=== PATIENT | female | born 1930 | race Caucasian/White ===

== ENCOUNTER 2017-04-29 18:48 | Inpatient (IN) | payer MEDICARE, MEDICAID ==
[~2017-04-29] VITALS: Ht 152.4 cm; Wt 53.6 kg
[~2017-04-29 18:48] MED LIST: ACETAMINOPHEN325 M2 PO; ACIDOPHILU1 Billion; AMIODARONE HCL200 MG PO; APIXABAN; COLACE100 M1 PO; COREG3.125 MG PO; CRANBERRY450 MG PO; DULCOLAX10 M2 RC; ELIQUIS2.5 MG PO; FLEET ENEMA 13135 ML RC; K-DUR10 MEQ PO; LIPITOR40 MG PO; MILK OF MA400 MG/5 M PO; MULTIVITAMIN1 SGL PO; NATURAL IRON65 MG PO; NORCO 325 MG-51 TAB PO; NORVASC5 MG PO; OMEPRAZOLE20 M3 PO; PROVENTIL2.5 MG/3 M INH; ROBITUSSIN/DEXT10 ML PO; ROBITUSSIN20 MG/1 ML PO; SALINE NS; SYNTHROID0.075 MG PO; TUMS500 M1 PO; VITAMIN C500 M8 PO
--- NOTE | 2017-04-29 18:48 | NUR ---
Patient BIBA ACLS, transferred to bed 7. RN and RT evaluating patient at bedside.
[2017-04-29] MEDS ORDERED: ALBUTEROL SULFATE/IPRATROPIU 3 ML SOL IH ONE ×2 (18:55→19:25)
[2017-04-29 19:02] VITALS: BP 110/52
--- NOTE | 2017-04-29 19:14 | NUR ---
86/F nitzaa from [facility] with complaints of SOB all day today. Per EMS, pt received x1 breathing treatment at facility. Pt found in bed 7 with labored breathing, RR 36, use of accessory muscles, rhonchi and crackles noted all over. Pt is awake, alert to name, lethargic, purposeful with following commands. Afebrile. Pt arrived with F/C. Pt in a gown, on metaphysician, pulse oximetry and blood pressure monitoring. Pt on 4L nasal canula, O2 sat 95%.
--- NOTE | 2017-04-29 19:14 | NUR ---
Patient being evaluated by Dr. Ascencio at bedside.
[2017-04-29] MEDS ORDERED: NACL 0.9% 1,000 ML IV ONE (19:26)
[2017-04-29] MEDS ORDERED: methylPREDNISolone SS 125 MG in WATER STERILE 2 ML IV ONE (19:30)
[2017-04-29] MEDS ORDERED: ELIQUIS2.5 MG PO (19:34)
[2017-04-29] MEDS ORDERED: ATIVAN0.5 MG PO (19:34)
[2017-04-29] MEDS ORDERED: LASIX40 MG PO (19:34)
[2017-04-29] MEDS ORDERED: SYNTHROID0.075 MG PO (19:34)
[2017-04-29] MEDS ORDERED: PROVENTIL2.5 MG/3 M INH ×2 (19:34)
[2017-04-29] MEDS ORDERED: PACERONE200 MG PO (19:34)
[2017-04-29] MEDS ORDERED: LIPITOR40 MG PO (19:34)
[2017-04-29] MEDS ORDERED: ONE DAILY COMP1 EACH PO (19:34)
[2017-04-29] MEDS ORDERED: GOOD SENSE OMEP20 MG PO (19:34)
--- NOTE | 2017-04-29 19:39 | NUR ---
RT at bedside for second breathing treatment.
--- NOTE | 2017-04-29 19:40 | NUR ---
Lab at bedside for blood draw.
[2017-04-29 20:00] VITALS: BP 102/60
--- NOTE | 2017-04-29 20:01 | NUR ---
RT at bedside apply bipap
--- NOTE | 2017-04-29 20:02 | NUR ---
X-Ray at bedside.
--- NOTE | 2017-04-29 20:20 | NUR ---
Pt arrived with a F/C [address], with 200 ml of yellow cloudy urine in bag. F/C removed. New # 16 FR Harmon catheter inserted utilizing sterile technique. Immediate return of 0 ml urine noted. Bedside drainage bag placed below level of bladder. Pt tolerated procedure well.
[2017-04-29] MEDS ORDERED: FUROSEMIDE 40 MG/4 ML VIAL IVP ONE (20:25)
[2017-04-29] MEDS ORDERED: ALBUTEROL 0.083% 2.5 MG/3 ML NEBU IH PRN (20:50)
[2017-04-29] MEDS ORDERED: ACETAMINOPHEN 325 MG TAB PO PRN (20:50)
[2017-04-29] MEDS ORDERED: MORPHINE SULFATE 2 MG/ML SYR IVP PRN (20:50)
[2017-04-29] MEDS ORDERED: ONDANSETRON 4 MG/2 ML VIAL IVP PRN (20:50)
[2017-04-29 21:00] VITALS: BP 111/67
[2017-04-29] MEDS: APIXABAN 2.5 MG TAB PO SCH (21:00)
[2017-04-29] MEDS: FUROSEMIDE 40 MG/4 ML VIAL IVP SCH (21:00)
--- NOTE | 2017-04-29 21:33 | NUR ---
Patient will be admitted to care of Dr. Parrish. Admited to TELE. Will go to room 121-B. Belongings list completed. Report to Adilene ARANDA.
--- NOTE | 2017-04-29 21:40 | NUR ---
RECEIVED REPORT FROM ALEX ARANDA IN THE ER, PT WAS TRANSFERRED TO THE UNIT VIA GURNEY. PT IS AOX1, ONLY RESPONDS TO HER NAME. ON BIPAP, AND WHEN ASSESSED, HAS CRACKLES. WITH AN IV TO THE RIGHT HAND 24 G, INTACT AND PATENT, ON SALINE LOCK. WITH A RIGHT UPPER ARM ABRASION, COVERED IN THE ER AND A LEFT FA SKIN TEAR OPEN TO AIR, HEALING WELL. NOTED WITH BRUISES ON THE RIGHT FOREARM. INITIAL ASSESSMENT COMPLETED. ASSESSMENT QUESTIONS WERE BASED OF CHART AND ER DOCUMENATION. ORIENTED PT TO THE UNIT, NEEDS REINFORCEMENT. WILL CONTINUE TO MONITOR. ALL NEEDS ATTENDED, CALL LIGHT WITHIN REACH. SAFETY CHECKS IN PLACE. Addendum: 04/30/17 at 0040 by Kiera Patel RN HAS ELY CATHETER DRAINING WITH YELLOW URINE.
--- NOTE | 2017-04-29 22:05 | NUR ---
2200 TRANSFERED PT TO THE FLOOR STILL ON BIPAP. NO INCIDENT OCCURED
[2017-04-29] MEDS: DOCUSATE SODIUM 100 MG GELCAP PO SCH (22:28)
[2017-04-29] MEDS: ATORVASTATIN 20 MG TAB PO SCH (22:29)
[2017-04-29] MEDS: LORazepam 0.5 MG TAB PO SCH (22:29)
[2017-04-29] MEDS: POTASSIUM CHLORIDE 10 MEQ TABER PO SCH (22:29)
[2017-04-29] MEDS: CARVEDILOL 3.125 MG TAB PO SCH (22:30)
--- NOTE | 2017-04-29 22:30 | NUR ---
DUE MEDS GIVEN, WELL TOLERATED BY PT. WILL CONTINUE TO MONITOR. INFORMED CHARGE NURSE AND THERMOMETER MAKER OF ELIQUIS DOSE, THERMOMETER MAKER SAID HE WILL LOOK FOR THE MEDICATION IN OTHER UNITS. DID NOT GIVE LASIX DUE TO PT RECEIVING IT IN THE ER AN HOUR PRIOR TO COMING INTO THE FLOOR.
--- NOTE | 2017-04-29 23:20 | NUR ---
CALLED SHEET METAL LAY OUT WORKER TO FOLLOW UP ON THE ELIQUIS, SAID THERE WAS NOT IN STOCK.
--- NOTE | 2017-04-29 23:50 | NUR ---
BIPAP MACHINE WAS BEEPING, CALLED RT TO ASSESS PT.
[2017-04-30] VITALS (7 sets, daily range): BP systolic 100–131; BP diastolic 60–76
[2017-04-30] MEDS: IPRATROPIUM 0.02% 0.5 MG/2.5 ML NEBU IH SCH ×4 (01:06→20:24)
[2017-04-30] MEDS: ALBUTEROL 0.083% 2.5 MG/3 ML NEBU IH SCH ×4 (01:06→20:25)
[2017-04-30] MEDS: FUROSEMIDE 40 MG/4 ML VIAL IVP SCH ×2 (04:49→20:56)
[2017-04-30] MEDS: LEVOTHYROXINE 0.075 MG TAB PO SCH (05:44)
--- NOTE | 2017-04-30 07:15 | NUR ---
RECEIVED PT STABLE ON BIPAP AT DOCUMENTED SETTINGS, HHN TX GIVEN, TOLERATED WELL, NO RESP DISTRESS NOTED AT THIS TIME, PT STATES COMFORT, PROTECTA GEL UNDER FACE MASK, ALARMS SET AND AUDIBLE, VENT PLUGGED INTO RED OUTLET, WILL CONTINUE TO MONITOR.
--- NOTE | 2017-04-30 07:29 | NUR ---
ENDORSED TO AM SHIFT NURSE FOR CONTINUITY OF CARE IN STABLE CONDITION.
--- NOTE | 2017-04-30 07:30 | NUR ---
RECEIVED REPORT FROM NUTRITION EDUCATOR NURSE. PATIENT IS SLEEPING. NO S/S OF DISTRESS NOTED. PATIENT ON BIPAP, RESPIRATIONS EVEN, UNLABORED. SKIN COLOR WITHIN NORMAL LIMITS. AROUSABLE BY VOICE. INITIAL ASSESSMENT COMPLETED, PLAN OF CARE REVIEWED. PATIENT REMAINS ON EQUAL OPPORTUNITY SPECIALIST. ELY CATHETER IN PLACE, PATENT, DRAINING CLEAR YELLOW URINE. IV SITE ON RIGHT FOREARM 24G SL INTACT, PATENT. SAFETY MEASURES IN PLACE, CALL LIGHT WITHIN REACH, BED RAILS UP X2, BED WHEELS LOCKED. WILL CONTINUE TO MONITOR.
--- NOTE | 2017-04-30 08:02 | NUR ---
CHANGED BIPAP MASK FROM MEDIUM TO SMALL SIZE
--- NOTE | 2017-04-30 08:40 | NUR ---
DR. PALM AT BEDSIDE, VERBAL ORDERS GIVEN AND READ BACK TO DR. PALM. ORDERS ENTERED. PATIENT LYING DOWN IN BED, AAOX1, BIPAP MASK REMAINS ON PATIENT, O2 SAT 99% ON BIPAP, LUNGS CTA ALL LOBES, NO S/S OF RESPIRATORY DISTRESS. REFUSES BREAKFAST, DRANK ORANGE JUICE. LEFT FOREARM HEALING SKIN TEAR, RIGHT UPPER ARM BANDAGE CDI, B/L ARM PURPLE DISCOLORATIONS. MEDICATIONS DUE GIVEN WITH APPLE SAUCE, PATIENT TOLERATED WELL. PATIENT PLACED BACK ON BIPAP. SAFETY MEASURES IN PLACE, CALL LIGHT WITHIN REACH, BED RAILS UP X 2. WILL CONTINUE TO MONITOR.
--- NOTE | 2017-04-30 08:45 | NUR ---
CONT PULSE OX PLACED AT BEDSIDE
--- NOTE | 2017-04-30 08:46 | NUR ---
PATIENT HAS BEEN SCREENED AND CATEGORIZED MODERATE NUTRITION RISK. PATIENT WILL BE SEEN WITHIN 3-5 DAYS OF ADMISSION. 05/02/17-05/04/[address] Addendum: 04/30/17 at [address] Error, Disregard
--- NOTE | 2017-04-30 08:49 | NUR ---
FNS REFERRAL RECEIVED ON 04/29/17 - 2212 FOR UNSPECIFIED REASON. REFERRAL DOES NOT MEET HIGH RISK CRITERIA PER HOSPITAL POLICY. PATIENT WILL BE SEEN AND ASSESSED ACCORDING TO THE NUTRITION CARE POLICY. PATIENT HAS BEEN SCREENED AND CATEGORIZED MODERATE NUTRITION RISK. PATIENT WILL BE SEEN WITHIN 3-5 DAYS OF ADMISSION. 05/02/17-05/04/[address]
[2017-04-30] MEDS: PANTOPRAZOLE 40 MG TABEC PO SCH (08:53)
[2017-04-30] MEDS: MULTIVITAMIN/MINERALS 1 TAB PO SCH (08:54)
[2017-04-30] MEDS: CARVEDILOL 3.125 MG TAB PO SCH ×2 (08:54→21:00)
[2017-04-30] MEDS: LORazepam 0.5 MG TAB PO SCH ×2 (08:55→20:56)
[2017-04-30] MEDS: DOCUSATE SODIUM 100 MG GELCAP PO SCH ×2 (08:59→20:56)
[2017-04-30] MEDS: POTASSIUM CHLORIDE 10 MEQ TABER PO SCH ×2 (09:00→20:56)
[2017-04-30] MEDS ORDERED: AMIODARONE 200 MG TAB PO SCH (09:00)
[2017-04-30] MEDS ORDERED: ENOXAPARIN 30 MG/0.3 ML SYR SUBQ SCH (09:00)
[2017-04-30] MEDS: APIXABAN 2.5 MG TAB PO SCH ×2 (09:02→20:59)
--- NOTE | 2017-04-30 09:25 | NUR ---
PT TAKEN OFF BIPAP, PLACED ON 4LPM NC, TOLERATING WELL, NO RESP DISTRESS OR SOB NOTED, O2 SAT 98% HR 82, NOTIFIED OLIVIA ARANDA, WILL CONTINUE TO MONITOR.
--- NOTE | 2017-04-30 10:00 | NUR ---
CRITICAL RESULT TROPONIN 0.[address] PALM VIA TELEPHONE. DR. PALM TO CONTACT MANAGER TRUCK DR. MCGHEE. NO NEW ORDERS AT THIS TIME. EKG RESULTS ALSO REPORTED.
[2017-04-30] MEDS: AZITHROMYCIN 500 MG in DEXTROSE 5% 250 ML IV SCH (10:18)
--- NOTE | 2017-04-30 11:15 | NUR ---
SPONGE BATH GIVEN BY HYPERBARIC WELDER DIVER. ZAINAB CARE PERFORMED. REDNESS NOTED ON BUTTOCK/SACRUM, PHOTO TAKEN, APPLIED HEART SHAPED FOAM DRESSING FOR PROTECTION. POSITION CHANGED. PATIENT NOW ON 4L VIA NC, SAT: 97-98%, RESPIRATIONS EVEN AND UNLABORED. NO ACUTE DISTRESS NOTED. PATIENT REMAINS ON CARDIAC MONITORING. WILL CONTINUE TO MONITOR.
--- NOTE | 2017-04-30 13:45 | NUR ---
PATIENT'S SON AT BEDSIDE. PLAN OF CARE REVIEWED. SODA AND CHOCOLATE PUDDING GIVEN TO PATIENT REQUESTED. PATIENT IS CALM, RESTING COMFORTABLY IN BED. REASSURED OF IMPROVING STATUS. NO S/S OF DISTRESS. WILL CONTINUE TO MONITOR.
--- NOTE | 2017-04-30 14:24 | NUR ---
CM NOTE INITIAL REVIEW FAXED TO [facility] / FAX# [phone], ATTN: CRISTINE #[phone]
--- NOTE | 2017-04-30 17:40 | NUR ---
RECEIVED CALL FROM LABORATORY FOR TROPONIN CRITICAL VALUE OF 0.311. DR. ARPITA KELLER.
--- NOTE | 2017-04-30 17:50 | NUR ---
DR. SULLIVAN COVERING FOR DR. PALM CALLED BACK. TROPONIN RESULT REPORTED. WILL PAGE DR. CALLE PER DR. SULLIVAN REQUESTED.
--- NOTE | 2017-04-30 17:58 | NUR ---
DR. CALLE NOTIFIED OF CRITICAL TROPONIN LEVEL 0.311. PHYSICIAN TO SEE PATIENT.
--- NOTE | 2017-04-30 18:20 | NUR ---
DR CALLE TO BEDSIDE FOR EVAL, NEW ORDERS RECIEVED, PT RESTING QUIETLY IN NAD, RESP EVEN UNLABORED ON 3L NC, ELY DRAINING WELL LIGHT YELLOW URINE, ORANGE JUICE PROVIDED REQUESTED BY PT. WILL CONTINUE TO MONITOR
--- NOTE | 2017-04-30 19:29 | NUR ---
REPORT GIVEN TO PHTHALIC ACID PURIFIER NURSE, PT IN STABLE CONDITION.
--- NOTE | 2017-04-30 19:30 | NUR ---
RECEIVED PT IN STABLE CONDITION FROM AM NURSE. AWAKE/ORIENTED X2. WITH PERIODS OF CONFUSION. ON TELE MONITOR -SR / BBB. ON BEDREST . WITH GEN WEAKNESS. HL ON THE RT FA#[phone]. CLEAR AND PATENT. ELY CATH TO GRAVITY, DRAINING CLEAR YELLOW UIRNE.
--- NOTE | 2017-04-30 19:30 | NUR ---
CONTINUATION OF ABOVE NOTES. NO BP , BLOOD DRAW ON LT ARM. SIGN PLACED . REPOSITIONED FOR COMFORT . NEED ATTENDED. PLAN OF CARE DISCUSSED AND NEED REINFORCEMENT. BED ON LOW POSITION , SIDE RAILS UP X2. CALL LIGHT LACED WITHIN EASY REACH. WILL CONTINUE TO MONITOR.
[2017-04-30] MEDS: ATORVASTATIN 20 MG TAB PO SCH (20:57)
--- NOTE | 2017-04-30 20:59 | NUR ---
NIGHT MEDS GIVEN. TOLERATED WELL WITH APPLE SAUCE. WILL CONTINUE TO MONITOR.
[2017-04-30] MEDS: NITROGLYCERIN 2% 1 GM PKT TP SCH (21:00)
--- NOTE | 2017-04-30 22:00 | NUR ---
MADE ROUNDS. ASLEEP. NO ACUTE RESPIRATORY DISTRESS NOTED. WILL CONTINUE TO MONITOR.
--- NOTE | 2017-04-30 23:00 | NUR ---
REPOSITIONED PT FOR COMFORT. NO SOB NOTED. WILL CONTINUE TO MONITOR.
[2017-05-01] MEDS: ALBUTEROL 0.083% 2.5 MG/3 ML NEBU IH SCH ×4 (00:43→19:15)
[2017-05-01] MEDS: IPRATROPIUM 0.02% 0.5 MG/2.5 ML NEBU IH SCH ×4 (00:43→19:15)
--- NOTE | 2017-05-01 00:45 | NUR ---
RT HERE. PT GETTING BREATHING TREATMENT AT THIS TIME. NO SOB NOTED.
--- NOTE | 2017-05-01 01:08 | NUR ---
FOLLOW UP REGARDING PNA VACCINE, PT SAID SHE HAD ONE 3 -4 YEARS AGO.
--- NOTE | 2017-05-01 03:00 | NUR ---
MADE ROUNDS . SLEEPING AT THIS TIME. NO SOB NOTED.
[2017-05-01 04:10] VITALS: BP 94/55
--- NOTE | 2017-05-01 06:00 | NUR ---
HAS BEEN REPOSITIONED FOR COMFORT DURING THE NIGHT.
[2017-05-01] MEDS: LEVOTHYROXINE 0.075 MG TAB PO SCH (06:47)
--- NOTE | 2017-05-01 07:10 | NUR ---
ENDORSED PT IN STABLE CONDITION TO AM NURSER.
--- NOTE | 2017-05-01 07:11 | NUR ---
RECEIVED REPORT,ASSUMED CARE. PT AWAKE, RESTING IN BED . RESPIRATION EVEN AND UNLABORED,NO SOB, NO S/S OF DISTRESS. DENIES PAIN AT THIS TIME. RT AT BEDSIDE FOR BREATHING TX. SKIN INTACT, NO PRESSURE ULCER NOTED. PER AM NURSE, PT POSSIBLE DC TODAY. DISCUSSED PLAN OF CARE, EMPHASIZED Q2H TURNING. PT VERBALIZED UNDERSTANDING. ELY CATH IN PLACE, DRAINING CLEAR YELLOW URINE OUTPUT. CALL LIGHT PLACED WITHIN EASY REACH. WILL CONTINUE TO MONITOR.
--- NOTE | 2017-05-01 07:30 | NUR ---
AWAKE AND ALERT RECEIVED ON SUPPLEMENTAL OXYGEN AT 3LPM VIA NC SATURATION 100% POST HHN THERAPY TITRATED FIO2 TO 2 LPM ADELIA/RN NOTIFIED BIPAP I ROOM AT BEDSIDE
[2017-05-01 08:00] VITALS: BP 90/57
[2017-05-01] MEDS: AMIODARONE 200 MG TAB PO SCH (09:00)
[2017-05-01] MEDS ORDERED: ECOTRIN 81 MG TABEC PO SCH (09:00)
[2017-05-01] MEDS: NITROGLYCERIN 2% 1 GM PKT TP SCH ×2 (09:00→21:00)
[2017-05-01] MEDS: CARVEDILOL 3.125 MG TAB PO SCH (09:00)
[2017-05-01] MEDS: DOCUSATE SODIUM 100 MG GELCAP PO SCH ×2 (09:00→20:41)
[2017-05-01] MEDS: LORazepam 0.5 MG TAB PO SCH ×2 (09:00→21:00)
--- NOTE | 2017-05-01 09:00 | NUR ---
HELD BP MEDS ALONG WITH ATIVAN DUE TO DECREASED BP. INTERMITTENTLY PRODUCTIVE COUGH NOTED. ENCOURAGED TO EXPECTORATE PHLEGM, PT UNABLE TO. HOB ON HIGH FOWLERS POSITION. O2 SAT 98/100% ON O2 AT 2L VIA NC. CONTINUE ON Q2H TURNING. LYING ON RIGHT SIDE FACING THE WINDOW. WILL CONTINUE TO MONITOR.
[2017-05-01] MEDS: PANTOPRAZOLE 40 MG TABEC PO SCH (09:13)
[2017-05-01] MEDS: POTASSIUM CHLORIDE 10 MEQ TABER PO SCH ×2 (09:13→20:42)
[2017-05-01] MEDS: MULTIVITAMIN/MINERALS 1 TAB PO SCH (09:13)
[2017-05-01] MEDS: methylPREDNISolone SS 40 MG/ML VIAL IVP SCH (09:23)
[2017-05-01] MEDS: FUROSEMIDE 40 MG/4 ML VIAL IVP SCH ×2 (09:23→21:00)
[2017-05-01] MEDS: AZITHROMYCIN 500 MG in DEXTROSE 5% 250 ML IV SCH (09:29)
[2017-05-01] MEDS: APIXABAN 2.5 MG TAB PO SCH ×2 (09:44→20:43)
--- NOTE | 2017-05-01 10:30 | NUR ---
PT TURNED TO THE LEFT FACING THE DOOR. REDNESS TO COCCYX AREA, Z GUARD APPLIED FOR PREVENTION OF ULCER. KEPT CLEAN AND DRY. WILL CONTINUE TO MONITOR
--- NOTE | 2017-05-01 10:44 | NUR ---
SPOKE WITH DR. CALLE MADE AWARE OF DC PLANNING ORDERED BY DR. PALM. PT NOT CLEARED FOR DISCHARGE YET, STATES "MAYBE TOMORROW" AND ORDERED TO DC ASA. NOTED AND CARRIED OUT.
--- NOTE | 2017-05-01 11:00 | NUR ---
PT C/O SOB AT THIS TIME, O2 SAT SHOWS 98-100%. ON O2 AT 2L VIA NC. STEPHEN RT AWARE, PT WAS PUT ON BIPAP TO MASK. INTERMITTENT PRODUCTIVE COUGH WITH CONGESTION. BREATH SOUNDS RONCHI BILATERAL. HOB MAINTAINED TO SEMIFOWLER'S POSITION. WILL CONTINUE TO MONITOR.
--- NOTE | 2017-05-01 11:10 | NUR ---
AWAKE AND ALERT RESPONSIVE SATURATION 99% ON SUPPLEMENTAL OXYGEN AT 2 LPM VIA NC HR 89 RR 32 BREATH SOUNDS DIFFUSED RHONCHI BILATERAL PATIENT REMAINS SOB AT THIS TIME PLACED ON BIPAP TO MASK WITH PROTECTA-GEL TO DECREASE WORK OF BREATHING ADELIA/RN NOTIFIED
[2017-05-01 12:00] VITALS: BP 94/55
--- NOTE | 2017-05-01 12:30 | NUR ---
PT REQUESTS TO BE REMOVED ON BIPAP LUNCH TRAY HAS BEEN SERVED. HOOKED PT ON O2 AT 2L VIA NC. NO S/S OF RESPIRATORY DISTRESS, NO C/O SOB AT THIS TIME. WILL CONTINUE TO MONITOR.
--- NOTE | 2017-05-01 12:34 | NUR ---
PT TURNED TO THE RIGHT FACING THE WINDOW. PT ARGUMENTATIVE AND REFUSES TO BE TURNED Q2H. CONTINUE TO EDUCATE PT REGARDING IMPORTANCE OF COMPLIANCE WITH TURNING TO PREVENT PRESSURE ULCER. PT IRRITABLE AND REFUSES TO VERBALIZE UNDERSTANDING. WILL CONTINUE TO MONITOR.
--- NOTE | 2017-05-01 13:26 | NUR ---
PAGED DR. PALM RE: URINE CULTURE RESULT E COLI ESBL MDRO. MESSAGE LEFT TO SALVADOR. AWAITING FOR CALL BACK.
--- NOTE | 2017-05-01 14:00 | NUR ---
DR. PALM CALLED BACK AND DISCUSSED URINE CX RESULT WITH NEW ORDER TO DC ZITHROMAX AND START PT ON ZOSYN 3.375GM IVPB Q6H. NOTED AND CARRIED OUT.
--- NOTE | 2017-05-01 14:05 | NUR ---
PT ALLERGIC TO PCN, CAN'T HAVE ZOSYN. SPOKE WITH LEIA(PHARMACIST), RECOMMENDED TO EITHER TOBRAMYCIN OR GENTAMICIN. WILL DISCUSS WITH DR. PALM.
--- NOTE | 2017-05-01 14:12 | NUR ---
PATIENT REMOVED FROM BIPAP TO MASK AT 1230 BY ADELIA/RN FOR LUNCH TRAY LOC ASLEEP AT THIS TIME EASILY AWAKEN NO EVIDENCE SOB NOTED ASSESSMENT DONE HHN THERAPY GIVEN ORDERED BIPAP AT BEDSIDE
--- NOTE | 2017-05-01 14:16 | NUR ---
SPOKE WITH DR. PALM DISCUSSED ABOUT PATIENT'S ALLERGY AND PHARMACIST'S RECOMMENDATION. ORDERED TO CONTACT INFECTIOUS DISEASE DOCTOR. WILL NOTIFY DR. CHANG.
--- NOTE | 2017-05-01 14:18 | NUR ---
PAGED DR. CHANG, MESSAGE LEFT TO TRACEY. AWAITING FOR CALL BACK.
--- NOTE | 2017-05-01 14:24 | NUR ---
DR. CHANG CALLED BACK MADE AWARE OF THE CONSULT. HE STATES HE'LL LOOK INTO IT AND WILL PUT THE ORDER IN THE COMPUTER.
--- NOTE | 2017-05-01 14:26 | NUR ---
PT TURNED TO THE LEFT FACING THE DOOR. PT CONTINUE ON O2 AT 2L VIA NC . NO S/S OF RESPIRATORY DISTRESS AT THIS TIME. WILL CONTINUE TO MONITOR.
[2017-05-01] MEDS ORDERED: Z-GUARD PASTE TP PRN (15:10)
--- NOTE | 2017-05-01 15:35 | NUR ---
CM NOTE CONCURRENT REVIEW FAXED TO [facility] / FAX# [phone], ATTN: CRISTINE #[phone]
[2017-05-01 16:00] VITALS: BP 94/56
--- NOTE | 2017-05-01 18:45 | NUR ---
DR. CALLE CAME AND SEEN THE PT WITH NEW ORDER NITROBID. WILL CARRY OUT ORDER.
--- NOTE | 2017-05-01 18:50 | NUR ---
DR. PALM CAME WITH NO NEW ORDER AT THIS TIME.
--- NOTE | 2017-05-01 19:15 | NUR ---
PT AWAKE, RESTING COMFORTABLY IN BED. RESPIRATION EVEN AND UNLABORED, NO SOB, NO S/S OF RESPIRATORY DISTRESS. DENIES PAIN AT THIS TIME. CONTINUE ON O2 AT 2L VIA NC. PT HAS POOR APPETITE, CONSUMED 30% ALL MEALS SERVED. TURNED PT Q2H. ENDORSED TO NEXT SHIFT FOR CONTINUITY OF CARE. PT IN STABLE CONDITION.
--- NOTE | 2017-05-01 19:25 | NUR ---
RECEIVED PT IN STABLE CONDITION FROM AM NURSE. AWAKE,ALERT AND ORIENTED X2. WITH PERIODS OF CONFUSION. ON TELE MONITOR. NO ACUTE DISTRESS NOTED. O2 2L/NC. O2 SAT 100%. GETTING BREATHING TREATMENTS Q6HRS AND PRN FOR SOB. BEDREST. WITH HL ON THE RT HAND #24. CLEAR AND PATENT. ELY CATH TO GRAVITY WITH CLEAR YELLOW URINE OUTPUT. WITH ABRASION ON RT UPPER ARM, DRESSING IN PLACED. REDNESS ON THE SACRUM. NEED TO BE TURN Q2HRS. BED ON LOW POSITION. FREQUENT ROUNDS NEEDED. , ON CONTACT ISOLATION FOR ESBL/MDRO URINE. CALL LIGHT PLACED WITHIN EASY REACH. WILL CONTINUE TO MONITOR.
[2017-05-01 19:54] VITALS: BP 92/52
[2017-05-01] MEDS: ATORVASTATIN 20 MG TAB PO SCH (20:42)
[2017-05-01] MEDS: CARVEDILOL 6.25 MG TAB PO SCH (21:00)
--- NOTE | 2017-05-01 21:00 | NUR ---
BLOOD PRESSURE HAS BEEN ON LOW 92/52 . SOME MEDS NOT GIVEN . WILL CONTINUE TO MONITOR.
--- NOTE | 2017-05-01 21:52 | NUR ---
DR. CHANG HERE AND SEEN PT . WITH NEW ORDERS.
--- NOTE | 2017-05-01 22:30 | NUR ---
ELY CATH DISCONTINUED PER MD ORDER. INSERTED A NEW ELY CATH #16. . PT TOLERATED PROCEDURE WELL.
[2017-05-01] MEDS ORDERED: MEROPENEM 500 MG VIAL IV ONE (22:33)
[2017-05-01] MEDS: MEROPENEM 500 MG in NACL 0.9% 50 ML IV SCH (22:41)
--- NOTE | 2017-05-01 22:41 | NUR ---
MERREM 500MG IVPB FIRST DOSE STARTED . WILL MONITOR FOR ANY REACTION.
[2017-05-02] VITALS: BP 93/61
--- NOTE | 2017-05-02 | NUR ---
REPOSITIONED FOR COMFORT. NO SOB NOTED. O2 SAT 99%-100% ON O22L/NC.
[2017-05-02] MEDS: IPRATROPIUM 0.02% 0.5 MG/2.5 ML NEBU IH SCH ×3 (01:07→13:26)
[2017-05-02] MEDS: ALBUTEROL 0.083% 2.5 MG/3 ML NEBU IH SCH ×3 (01:08→13:26)
--- NOTE | 2017-05-02 02:45 | NUR ---
ELY CATH STILL IN PLACED. DRAINING CLEAR YELLOW URINE.
[2017-05-02 04:00] VITALS: BP 97/61
--- NOTE | 2017-05-02 04:45 | NUR ---
MADE RONDS. SLEEPING AT THIS TIME. NO S/S OF ANY DISTRESS NOTED.
[2017-05-02] MEDS: LEVOTHYROXINE 0.075 MG TAB PO SCH (05:48)
--- NOTE | 2017-05-02 06:20 | NUR ---
PT NOT ON ANY RESPIRATORY DISTRESS DURING THE NIGHT. HAS BEEN TURNED TO SIDES Q2HR.
--- NOTE | 2017-05-02 07:10 | NUR ---
ENDORSED PT IN STABLE CONDITION TO AM NURSE FOR CONTINUITY OF CARE.
--- NOTE | 2017-05-02 07:11 | NUR ---
RECEIVED PT FROM JUNAID RN AT BEDSIDE. PT IS A&OX2. PT HAS IV ON R ARM 24 G SL SITE INTACT. PT HAS DSG ON RUE FOR ABRASION. NO DISTRESS NOTED. PT IS RECEIVING BREATHING TX AT THIS TIME. CALL LIGHT WITHIN REACH. WILL CONTINUE TO MONITOR.
--- NOTE | 2017-05-02 07:29 | NUR ---
Weaned to room air.
[2017-05-02] MEDS ORDERED: MEROPENEM500 MG IV (07:58)
[2017-05-02 08:00] VITALS: BP 101/59
[2017-05-02] MEDS: PANTOPRAZOLE 40 MG TABEC PO SCH (08:35)
[2017-05-02] MEDS: methylPREDNISolone SS 40 MG/ML VIAL IVP SCH (08:35)
[2017-05-02] MEDS: MULTIVITAMIN/MINERALS 1 TAB PO SCH (08:36)
[2017-05-02] MEDS: POTASSIUM CHLORIDE 10 MEQ TABER PO SCH (08:36)
[2017-05-02] MEDS: LORazepam 0.5 MG TAB PO SCH (08:36)
[2017-05-02] MEDS: DOCUSATE SODIUM 100 MG GELCAP PO SCH (08:36)
[2017-05-02] MEDS: AMIODARONE 200 MG TAB PO SCH (08:49)
[2017-05-02] MEDS: CARVEDILOL 6.25 MG TAB PO SCH (08:49)
[2017-05-02] MEDS: FUROSEMIDE 40 MG/4 ML VIAL IVP SCH (08:49)
[2017-05-02] MEDS: NITROGLYCERIN 2% 1 GM PKT TP SCH (08:50)
[2017-05-02] MEDS: APIXABAN 2.5 MG TAB PO SCH (08:55)
[2017-05-02] MEDS: MEROPENEM 500 MG in NACL 0.9% 50 ML IV SCH (08:56)
--- NOTE | 2017-05-02 09:30 | NUR ---
CLEANED AND CHANGED DSG ON PT'S RUE. TOOK A PICTURE. PT TOLERATED WELL. CALL LIGHT WITHIN REACH. WILL CONTINUE TO MONITOR.
[2017-05-02 10:11] VITALS: BP 101/59
--- NOTE | 2017-05-02 10:51 | NUR ---
CM NOTE FAXED CONCURRENT REVIEW TO [facility] [phone], CRISTINE [phone], TONI [phone]. SPOKE WITH MATEO MUÑOZ OF [facility] [phone], SNF AUTH # AND MED [facility]SP[facility] FOR [facility] [phone], AUTH # [id number]. PER MATEO MUÑOZ IT'S A NON EMERGENT TRANSPORT THAT'S WHY IT'S THE SAME AUTH#.
[2017-05-02 11:43] VITALS: BP 94/56
--- NOTE | 2017-05-02 11:50 | NUR ---
HELPED PT EAT LUNCH. PT TOLERATED WELL. CALL LIGHT WITHIN REACH. WILL CONTINUE TO MONITOR.
--- NOTE | 2017-05-02 12:19 | NUR ---
CM NOTE SPOKE TO [facility] [phone] TO SET UP TRANSPORT GOING TO [facility] RM 34 A, JACK PRIZER TIME 1700, ACCEPTING DR. JAG MANCILLA, NUMBER TO CALL FOR REPORT PH [phone]. CHARGE NURSE EARL AND NURSE SRIDEVI AWARE.
--- NOTE | 2017-05-02 13:20 | NUR ---
CALLED PT'S SON JUDI ESTRADA AND MADE AWARE THAT PT IS TRANSFERRING TO [facility] TODAY AT 1700.
--- NOTE | 2017-05-02 13:40 | NUR ---
GAVE REPORT TO ORI ARANDA AT [facility] [place].
--- NOTE | 2017-05-02 15:40 | NUR ---
WENT OVER DC PAPERWORK WITH PT AT BEDSIDE. PT VERBALIZED UNDERSTANDING AND SIGNED ALL PAPERWORK. PT IN STABLE CONDITION. CALL LIGHT WITHIN REACH. WILL CONTINUE TO MONITOR.
[2017-05-02 16:00] VITALS: BP 90/54
--- NOTE | 2017-05-02 17:25 | NUR ---
GAVE REPORT TO YASMEEN GODOY. PT IN STABLE CONDITION. REMOVED ALL ID BANDS. PT IS GOING TO [facility] WITH ELY AND IV ON R F/A 24 G SALINE-LOCKED ORDERED FOR IV ANTIBIOTICS. O2 2L NC.
[2017-05-13] MEDS ORDERED: VITAMIN C500 M8 PO (06:20)
[2017-05-13] MEDS ORDERED: ACIDOPHILUS1 EAC1 PO (06:20)
[2017-05-13] MEDS ORDERED: CRANBERRY450 MG PO (06:20)
== END 2017-05-02 17:25 | disposition home or self-care (01) | DRG 291 ==
LOC: MED 18:48 → MTU 20:48
PROVIDERS: ADMIT Hospitalist; ATTEND Hospitalist
PROC: 5A09357 Assistance with Respiratory Ventilation, Less than 24 Consecutive Hours, Continuous Positive Airway Pressure (ICD-10-PCS; principal; 2017-04-29)
DX: I50.33 Acute on chronic diastolic (congestive) heart failure (principal); J96.00 Acute respiratory failure, unspecified whether with hypoxia or hypercapnia; J18.9 Pneumonia, unspecified organism; I69.354 Hemiplegia and hemiparesis following cerebral infarction affecting left non-dominant side; J44.0 Chronic obstructive pulmonary disease with (acute) lower respiratory infection; J44.1 Chronic obstructive pulmonary disease with (acute) exacerbation; N39.0 Urinary tract infection, site not specified; F03.90 Unspecified dementia, unspecified severity, without behavioral disturbance, psychotic disturbance, mood disturbance, and anxiety; F41.9 Anxiety disorder, unspecified; B96.20 Unspecified Escherichia coli [E. coli] as the cause of diseases classified elsewhere; E03.9 Hypothyroidism, unspecified; E78.5 Hyperlipidemia, unspecified; Z85.3 Personal history of malignant neoplasm of breast; Z88.0 Allergy status to penicillin; Z88.7 Allergy status to serum and vaccine; Z99.81 Dependence on supplemental oxygen; Z79.01 Long term (current) use of anticoagulants; Z90.12 Acquired absence of left breast and nipple

== ENCOUNTER 2017-05-04 15:03 | Inpatient (IN) | payer MEDICARE, MEDICAID ==
[~2017-05-04] VITALS: Ht 162.6 cm; Wt 54.0 kg
[~2017-05-04 15:03] MED LIST changes: +ATIVAN0.5 MG PO; +GOOD SENSE OMEP20 MG PO; +LASIX40 MG PO; +MEROPENEM500 MG IV; +ONE DAILY COMP1 EACH PO; +PACERONE200 MG PO
--- NOTE | 2017-05-04 15:03 | NUR ---
Patient was BIBA and taken to bed 04 via guramy per EMS. Addendum: 05/04/17 at 1621 by [email or web address] [place] MANOJ SERRANO [place] [facility] [facility] 2 DAYS AGO DX UTI & RETAINED ELY'S CATH FROM HOSPITAL. PT HAS SOB & COUGH X 2 DAYS; ON O2 CN 4 L/M. PT CAN'T EAT ANYTHING TODAYS ONLY DRANK WATER 250 CC. URINE FROM ELY CATH A LITTLE PER MANOJ SERRANO. SKIN COCCYX REDNESS.
--- NOTE | 2017-05-04 15:04 | NUR ---
86 YO FEMALE BIB EMS FROM [facility] FOR SUDDEN ONSET OF COUGH & SOB X 2 DAYS. DENIES N/V/D; SKIN IS OPEN & RED TO HANS. AAOX4 ; LUNGS CRACKLE BL; HR EVEN AND REGULAR; PT DENIES ANY FEVER, CP AT THIS TIME; PATIENT STATES PAIN OF 0/10 AT THIS TIME; VSS; PATIENT POSITIONED FOR COMFORT; HOB ELEVATED; BEDRAILS UP X2; BED DOWN. ER MD MADE AWARE OF PT STATUS.
[2017-05-04 15:10] VITALS: BP 126/70
--- NOTE | 2017-05-04 15:25 | NUR ---
Patient being evaluated by DR BYRNES at bedside.
[2017-05-04] MEDS ORDERED: NACL 0.9% 1,000 ML IV ONE (15:30)
--- NOTE | 2017-05-04 16:13 | NUR ---
X RAY AT BEDSIDE.
--- NOTE | 2017-05-04 16:36 | NUR ---
Patient appears to be resting comfortably in bed. BP 107/72, P 81/MIN, R 28/MIN.WILL CONTINUE TO MONITOR.
--- NOTE | 2017-05-04 16:58 | NUR ---
LAB AT BEDSIDE
[2017-05-04] MEDS ORDERED: FUROSEMIDE 40 MG/4 ML VIAL IVP ONE (17:15)
--- NOTE | 2017-05-04 17:48 | NUR ---
CALLED RT FOR O2 FACE MASK.
--- NOTE | 2017-05-04 18:03 | NUR ---
PLACED PT 35% VMASK, O2 SAT 97%, BIPAP ON STANDBY Addendum: 05/04/17 at 1808 by KHADAR PT STATUS ENDORSED TO NOC SHIFT
[2017-05-04] MEDS ORDERED: LEVOFLOXACIN 750 MG/D5W PREMIX 150 ML IV ONE (18:20)
[2017-05-04] MEDS ORDERED: ALBUTEROL 0.083% 2.5 MG/3 ML NEBU INH PRN (18:20)
[2017-05-04] MEDS ORDERED: ONDANSETRON 4 MG/2 ML VIAL IVP PRN (18:25)
[2017-05-04] MEDS ORDERED: MORPHINE SULFATE 2 MG/ML SYR IVP PRN (18:25)
[2017-05-04] MEDS ORDERED: MORPHINE SULFATE 4 MG/ML SYR IVP PRN (18:25)
--- NOTE | 2017-05-04 19:04 | NUR ---
GAVE REPORT TO MANOJ WILLS
--- NOTE | 2017-05-04 19:05 | NUR ---
Patient will be admitted to [facility] . Admited to TELE. Will go to room 114. Belongings list completed. Report to MANOJ WILLS.
--- NOTE | 2017-05-04 19:05 | NUR ---
PATIENT TRANSFERRED TO [facility] RM 114 ON SUPPLEMENTAL OXYGEN VIA VENTI-MASK AT 35%/9 LPM SATURATION 98% HR 88 RR 24 TOLERATED TRANSFER WELL WITHOUT INCIDENT DENY V60 BIPAP IN ROOM AT BEDSIDE FOR PRN USE
--- NOTE | 2017-05-04 19:10 | NUR ---
RECEIVED PATIENT FROM ER, RECEIVED REPORT FROM MANOJ GUILLORY. PT AWAKE AND ALERT, NO SIGNS OF ACUTE DISTRESS. BOWEL SOUNDS ACTIVE IN ALL 4 QUADRANTS. ON VENTURI MASK AT 35%, O2 SATURATION 96%. OPEN WOUND ON UPPER RIGHT ARM. PT DENIES PAIN AT THIS TIME. IV PATENT AND ASYMPTOMATIC. BEDBOUND. ELY CATHETER IN PLACE. ORIENTED TO HOSPITAL AND TO UNIT, PT VERBALIZES UNDERSTANDING. BED IN LOW POSITION WITH BILATERAL HALF SIDE RAILS UP, BED ALARM ON, CALL LIGHT WITHIN REACH. WILL CONTINUE TO MONITOR.
--- NOTE | 2017-05-04 19:20 | NUR ---
PT AWAKE AND ALERT, NO SIGNS OF ACUTE DISTRESS. ENDORSED TO MEDICAL DERMATOLOGIST NURSE FOR CONTINUITY OF CARE.
--- NOTE | 2017-05-04 19:21 | NUR ---
RECEIVED REPORT FROM AM SHIFT NURSE. PT IS AWAKE AND ALERT, NO S/S OF DISTRESS. NO COMPLAINTS OF PAIN. ON VENTURI MASK, WELL TOLERATED BY PT. WITH AN OPEN WOUND TO THE RIGHT UPPER ARM. IV TO THE RIGHT AC 24 G, SALINE LOCK, INTACT AND PATENT. WITH A ELY, DRAINING TO YELLOW URINE. BEDBOUND. ON TELE MONITORING. ORIENTED PT TO THE UNIT, VERBALIZED UNDERSTANDING. INITIAL ASSESSMENT DONE. WILL CONTINUE TO MONITOR. ALL NEEDS ATTENDED. CALL LIGHT WITHIN REACH. SAFETY CHECKS IN PLACE.
[2017-05-04] MEDS: ALBUTEROL 0.083% 2.5 MG/3 ML NEBU INH SCH (19:29)
--- NOTE | 2017-05-04 19:29 | NUR ---
SATURATION 98% ON SUPPLEMENTAL OXYGEN AT 35%/9 LPM POST HHN THERAPY PLACED ON A OXYMIZER AT 3 LPM WITH HUMIDIFIER DENI/RN AT BEDSIDE AWARE
[2017-05-04 20:00] VITALS: BP 113/68
[2017-05-04] MEDS ORDERED: CARVEDILOL 3.125 MG TAB PO SCH (21:00)
[2017-05-04] MEDS: APIXABAN 2.5 MG TAB PO SCH (21:00)
[2017-05-04] MEDS: ATORVASTATIN 20 MG TAB PO SCH (21:03)
[2017-05-04] MEDS: DOCUSATE SODIUM 100 MG GELCAP PO SCH (21:03)
[2017-05-04] MEDS: LORazepam 0.5 MG TAB PO SCH (21:04)
--- NOTE | 2017-05-04 21:04 | NUR ---
DUE MEDS GIVEN, WELL TOLERATED BY PATIENT. ASKED CLINICAL INFORMATICIST FOR MEDICATION OF ELIQUIS, SAID THERE WAS NONE IN STOCK. WILL CONTINUE TO MONITOR FOR ANY CHANGES.
[2017-05-05] VITALS: BP 93/61
--- NOTE | 2017-05-05 | NUR ---
VITAL SIGNS STABLE. NO S/S OF DISTRESS. NO COMPLAINTS OF PAIN. WILL CONTINUE TO MONITOR FOR ANY CHANGES.
--- NOTE | 2017-05-05 01:07 | NUR ---
PAGED DR. FOFANA IN REGARDS TO CRITICAL VALUE. AWAITING CALL BACK.
--- NOTE | 2017-05-05 01:12 | NUR ---
DR. FOFANA PAGED BACK, TOLD HIM THE TROPONIN LEVEL. NO NEW ORDERS AT THIS TIME.
--- NOTE | 2017-05-05 02:10 | NUR ---
MADE ROUNDS. PT ASLEEP. NO S/S OF DISTRESS. NO COMPLAINTS OF PAIN. WILL CONTINUE TO MONITOR FOR CHANGES.
[2017-05-05 04:00] VITALS: BP 114/68
--- NOTE | 2017-05-05 04:55 | NUR ---
PAGED DR. FOFANA FOR CRITICAL VALUE RESULT, AWAITING CALL BACK
--- NOTE | 2017-05-05 05:17 | NUR ---
PAGED DR FOFANA AGAIN FOR CRITICAL. AWAITING CALL BACK
--- NOTE | 2017-05-05 05:22 | NUR ---
REPORTED TO DR. FOFANA OF TROPONIN OF [phone]. SAID NO NEW ORDERS.
[2017-05-05] MEDS: ALBUTEROL 0.083% 2.5 MG/3 ML NEBU INH SCH ×3 (07:03→19:36)
--- NOTE | 2017-05-05 07:20 | NUR ---
ENDORSED TO AM SHIFT NURSE FOR CONTINUITY OF CARE IN STABLE CONDITION.
--- NOTE | 2017-05-05 07:20 | NUR ---
RECEIVED PATIENT REPORT AT BEDSIDE. PATIENT AWAKE AND ALERT. PATIENT RECEIVING 3L O2 VIA OXIMIZER. NO S/S OF DISTRESS NOTED. NO SOB. PATIENT DENIES PAIN. IV LINE NOTED TO THE RIGHT FOREARM SALINE LOCKED. WOUND DRESSING NOTED TO THE RIGHT UPPER ARM. DRESSING CLEAN DRY AND INTACT. ELY CATHETER IN PLACE. PATIENT ON TELE MONITORING. BED LOWERED WITH CALL LIGHT WITHIN REACH. WILL CONTINUE TO MONITOR
[2017-05-05 08:00] VITALS: BP 101/60
[2017-05-05] MEDS: CARVEDILOL 6.25 MG TAB PO SCH ×2 (08:00→17:33)
[2017-05-05] MEDS: LEVOTHYROXINE 0.075 MG TAB PO SCH (08:27)
[2017-05-05] MEDS: AMIODARONE 200 MG TAB PO SCH (08:28)
[2017-05-05] MEDS: PANTOPRAZOLE 40 MG TABEC PO SCH (08:29)
[2017-05-05] MEDS: MULTIVITAMIN/MINERALS 1 TAB PO SCH (08:30)
[2017-05-05] MEDS: FUROSEMIDE 40 MG/4 ML VIAL IVP SCH ×2 (08:32→13:59)
[2017-05-05] MEDS: APIXABAN 2.5 MG TAB PO SCH ×2 (08:39→20:25)
[2017-05-05] MEDS: LORazepam 0.5 MG TAB PO SCH ×2 (09:00→20:38)
[2017-05-05] MEDS: DOCUSATE SODIUM 100 MG GELCAP PO SCH ×2 (09:00→20:25)
--- NOTE | 2017-05-05 11:06 | NUR ---
PATIENT HAS BEEN SCREENED AND CATEGORIZED MODERATE NUTRITION RISK. PATIENT WILL BE SEEN WITHIN 3-5 DAYS OF ADMISSION. 05/07/17 - 05/09/[address]
--- NOTE | 2017-05-05 11:46 | NUR ---
PATIENT SEEN BY PHYSICAL THERAPIST
[2017-05-05 12:00] VITALS: BP 102/57
--- NOTE | 2017-05-05 13:30 | NUR ---
PATIENT WATCHING TELEVISION. NO S/S OF DISTRESS NOTED. PATIENT'S SON PRESENT IN THE ROOM
--- NOTE | 2017-05-05 14:29 | NUR ---
1415 SPOKE WITH MIRIAM FROM [facility] AND PT IS ONE OF THEIR GROUP HOME RESIDENTS AND IS ELIGIBLE FOR RETURN. PT'S SON JUDI MAKES PTS DECISIONS.
--- NOTE | 2017-05-05 15:04 | NUR ---
PT TAKEN OFF OF OXYMIZER AND PLACED ON 3L NC. PT IS NOT SOB AND NOT IN RESPIRATORY DISTRESS AT THIS TIME. WILL CONTINUE TO MONITOR.
--- NOTE | 2017-05-05 15:06 | NUR ---
CM NOTE INITIAL REVIEW FAXED TO [facility] / FAX# [phone], ATTN: CRISTINE #[phone]
--- NOTE | 2017-05-05 15:45 | NUR ---
PATIENT IN BED WATCHING TELEVISION. NO S/S OF DISTRESS NOTED
[2017-05-05 16:00] VITALS: BP 107/52
--- NOTE | 2017-05-05 19:31 | NUR ---
PATIENT REPORT GIVEN AT BEDSIDE. PATIENT ENDORSED IN STABLE CONDITION
[2017-05-05 19:45] VITALS: BP 93/42
--- NOTE | 2017-05-05 19:45 | NUR ---
RECEIVED PT IN STABLE CONDITION FROM AM NURSE. AWAKE,ALERT AND ORIENTED X2. WITH HX: DEMENTIA. ON TELE MONITOR. ON O23L/N WITH HUMIDIFIER. NO ACUTE DISTRESS NOTED. BEDREST. ELY CATH TO GRAVITY. PLAN OF CARE DISCUSSED . NEED REINFORCEMENT. BED ON LOW POSITION. FREQUENT ROUNDS NEEDED. CALL LIGHT PLACED WITHIN EASY REACH. WILL CONTINUE TO MONITOR.
[2017-05-05] MEDS: ATORVASTATIN 20 MG TAB PO SCH (20:25)
--- NOTE | 2017-05-05 20:30 | NUR ---
PT HAD 1/2 SANDWICH , APPLE SAUCE AND JUICE. TOLERATED WELL.
--- NOTE | 2017-05-05 21:00 | NUR ---
PT WITH BLANCHABLE REDNESS ON SACRO COCCYGEAL AREA. TURN PT Q2HRS. PT AWARE OF THE NEED TO REPOSITION.
--- NOTE | 2017-05-05 22:00 | NUR ---
REPOSITIONED FOR COMFORT. NO SOB NOTED. WILL CONTINUE TO MONITOR.
[2017-05-06] VITALS: BP 91/49
--- NOTE | 2017-05-06 02:00 | NUR ---
REPOSITIONED FOR COMFORT. NO SOB NOTED. BUT WITH OCCASIONAL NON -PRODUCTIVE COUGH. O23L/NC STILL ON.
--- NOTE | 2017-05-06 04:00 | NUR ---
REPOSITIONED FOR COMFORT. NO SOB NOTED. WITH CONTINUOS O2 3L/NC.
[2017-05-06 04:05] VITALS: BP 100/57
[2017-05-06] MEDS ORDERED: HYDRAGUARD CREAM TP PRN (05:35)
[2017-05-06] MEDS ORDERED: MILD SOAP AND WATER TP PRN (05:35)
--- NOTE | 2017-05-06 06:00 | NUR ---
ASLEEP. NO S/S OF ANY DISCOMFORT NOTED. WILL CONTINUE TO MONITOR.
[2017-05-06] MEDS: LEVOTHYROXINE 0.075 MG TAB PO SCH (06:37)
[2017-05-06] MEDS: ALBUTEROL 0.083% 2.5 MG/3 ML NEBU INH SCH ×2 (07:16→19:18)
--- NOTE | 2017-05-06 07:20 | NUR ---
PT IN STABLE CONDITION . WILL ENDORSE PT TO AM NURSE FOR CONTINUITY OF CARE.
--- NOTE | 2017-05-06 07:21 | NUR ---
RECEIVED REPORT FROM SALES ENABLEMENT ANALYST NURSE AT BEDSIDE FOR CONTINUITY OF CARE. PT IS AWAKE AND ORIENTED. INTRODUCED SELF AND UPDATED BOARD. WILL CONTINUE WITH PLAN OF CARE AND MONITOR PT.
--- NOTE | 2017-05-06 07:22 | NUR ---
DECREASED PT DIO2 TO 28% 2 L NC . SPO2 STILL 99%. WILL CONTINUE TO MONITOR. Addendum: 05/06/17 at 0724 by Rebel Montana RT FIO2
[2017-05-06 08:00] VITALS: BP 103/63
[2017-05-06] MEDS: CARVEDILOL 6.25 MG TAB PO SCH ×2 (08:00→17:00)
--- NOTE | 2017-05-06 08:28 | NUR ---
ADMINISTERED SCHEDULED MEDS. PT'S BP WAS 103/63. NON-ADMIN BP MEDS (SEE EMAR). PT REFUSED COLACE AND ATIVAN. STATED SHE WAS ALREADY PASSING GAS AND DID NOT WANT TO TAKE ATIVAN. PT HAS NO COMPLAINTS AT THIS TIME WILL CONTINUE TO MONITOR.
[2017-05-06] MEDS: APIXABAN 2.5 MG TAB PO SCH ×2 (09:00→21:57)
[2017-05-06] MEDS: AMIODARONE 200 MG TAB PO SCH (09:00)
[2017-05-06] MEDS: DOCUSATE SODIUM 100 MG GELCAP PO SCH ×2 (09:00→21:00)
[2017-05-06] MEDS ORDERED: LEVOFLOXACIN 750 MG/D5W PREMIX 150 ML IV SCH (09:00)
[2017-05-06] MEDS: LORazepam 0.5 MG TAB PO SCH ×2 (09:00→21:00)
[2017-05-06] MEDS: FUROSEMIDE 40 MG/4 ML VIAL IVP SCH ×2 (09:38→13:00)
[2017-05-06] MEDS: PANTOPRAZOLE 40 MG TABEC PO SCH (09:41)
[2017-05-06] MEDS: MULTIVITAMIN/MINERALS 1 TAB PO SCH (09:41)
[2017-05-06] MEDS ORDERED: POTASSIUM CHLORIDE 10 MEQ TABER PO SCH (11:00)
[2017-05-06 12:00] VITALS: BP 97/61
[2017-05-06] MEDS: MILD SOAP AND WATER TP SCH (12:23)
[2017-05-06] MEDS: HYDRAGUARD CREAM TP SCH (12:23)
--- NOTE | 2017-05-06 12:42 | NUR ---
[place] [facility] [phone] PHONE CRISTINE [phone]
--- NOTE | 2017-05-06 13:00 | NUR ---
CHECKED ON PT IN ROOM. APPLIED HYDRAGUARD TO SACRALCOCCYX AREA. PT TOLERATED WELL. HELD LASIX PER PT'S BP WAS 92/50. REPOSITIONED PT IN BED AND TURNED TO LEFT SIDE. PT HAS NO COMPLAINTS AT THIS TIME WILL CONTINUE TO MONITOR.
[2017-05-06 16:00] VITALS: BP 92/50
--- NOTE | 2017-05-06 19:25 | NUR ---
ENDORSED PT TO TELECOMMUNICATIONS REPAIRER NURSE AT BEDSIDE FOR CONTINUITY OF CARE. PT IS IN STABLE CONDITION.
--- NOTE | 2017-05-06 19:35 | NUR ---
RECEIVED PT IN STABLE CONDITION FROM AM NURSE. BEDREST. AWAKE, ALERT AND ORIENTED X3-4. WITH HX DEMENTIA. ON TELE MONITOR . NO RESPIRATORY DISTRESS NOTED ON O22L/NC. BOTH LUNGS CLEAR AND AUSCULTATION . HAS HL ON THE RT FA#[id number]. CLEAR AND PATENT. WITH RT UPPER ARM DRESSING,CLEAN AND DRY. HAS REDNESS ON SACRAL AREA. REPOSITIONED FOR COMFORT . PLAN OF CARE DISCUSSED AND VERBALIZED UNDERSTANDING. BED ON LOW POSITION. ON CONTACT ISOLATION FOR HX: MDRO URINE. FREQUENT ROUNDS NEEDED. CALL LIGHT PLACED WITHIN EASY REACH. WILL CONTINUE TO MONITOR.
[2017-05-06 19:54] VITALS: BP 95/53
--- NOTE | 2017-05-06 21:00 | NUR ---
PT HAD HER NIGHT MEDS. REFUSED ATIVAN AND COLACE PO. SHE SAID SHE ALREADY HAD A BOWEL MOVEMENT IN AM.
[2017-05-06] MEDS: ATORVASTATIN 20 MG TAB PO SCH (21:56)
--- NOTE | 2017-05-06 22:00 | NUR ---
REPOSITIONED FOR COMFORT. TURNED TO SIDE. NO SOB NOTED.
--- NOTE | 2017-05-07 00:30 | NUR ---
PT REPOSITIONED FOR COMFORT. REDNESS ON THE SACROCOCCYGEAL AREA , CLEANED WITH MILD SOAP AND WATER THEN PAT DRY, APPLIED HYDRA GUARD TO THE AREA.
[2017-05-07 00:35] VITALS: BP 103/61
[2017-05-07] MEDS: HYDRAGUARD CREAM TP SCH ×2 (01:00→13:25)
[2017-05-07] MEDS: MILD SOAP AND WATER TP SCH ×2 (01:00→13:25)
[2017-05-07 04:07] VITALS: BP 102/62
--- NOTE | 2017-05-07 04:58 | NUR ---
PT HAD EPISODES OF A FIB. ASSESSED PT . ASYMPTOMATIC. VITAL SIGNS STABLE. AND HR BACK TO SR/BBB. PAGED DR. FERNÁNDEZ, GRAIN ELEVATOR MAN. MADE AWARE. NO NEW ORDER MADE.
--- NOTE | 2017-05-07 06:00 | NUR ---
MADE ROUNDS. PT IS SLEEPING WELL AT THIS TIME. NO S/S OF ANY DISCOMFORT NOTED.
[2017-05-07] MEDS: LEVOTHYROXINE 0.075 MG TAB PO SCH (06:29)
--- NOTE | 2017-05-07 06:43 | NUR ---
PT URINE CULTURE NEGATIVE FOR ANY MDRO INFECTION. CONTACT ISOLATION DISCONTINUED.
[2017-05-07] MEDS: ALBUTEROL 0.083% 2.5 MG/3 ML NEBU INH SCH ×2 (07:00→07:11)
--- NOTE | 2017-05-07 07:15 | NUR ---
ENDORSED PT IN STABLE CONDITION TO AM NURSE FOR CONTINUITY OF CARE.
--- NOTE | 2017-05-07 07:16 | NUR ---
RECEIVED REPORT FROM PERFORMANCE TEST CONSULTANT NURSE AT BEDSIDE FOR CONTINUITY OF CARE. PT IN STABLE CONDITION. PT IS AWAKE AND ORIENTED. INTRODUCED SELF AND UPDATED BOARD.
[2017-05-07 08:00] VITALS: BP 102/76
[2017-05-07] MEDS: MULTIVITAMIN/MINERALS 1 TAB PO SCH (08:19)
[2017-05-07] MEDS: CARVEDILOL 6.25 MG TAB PO SCH (08:19)
[2017-05-07] MEDS: PANTOPRAZOLE 40 MG TABEC PO SCH (08:19)
[2017-05-07] MEDS: FUROSEMIDE 40 MG/4 ML VIAL IVP SCH (08:20)
[2017-05-07] MEDS: LORazepam 0.5 MG TAB PO SCH (08:20)
[2017-05-07] MEDS: DOCUSATE SODIUM 100 MG GELCAP PO SCH (08:20)
[2017-05-07] MEDS: AMIODARONE 200 MG TAB PO SCH (08:24)
--- NOTE | 2017-05-07 10:32 | NUR ---
PT WAS BATHED AND CLEANED IN BED. ASSISTED BY CNAS. LINENS WERE CHANGED. PT WAS REPOSITIONED IN BED. PT RESTING COMFORTABLY IN BED RIGHT NOW.
[2017-05-07] MEDS: APIXABAN 2.5 MG TAB PO SCH (10:37)
[2017-05-07] MEDS ORDERED: MEROPENEM500 MG IV (10:40)
[2017-05-07] MEDS ORDERED: DIFLUCAN100 M1 PO (10:41)
--- NOTE | 2017-05-07 11:46 | NUR ---
CALL TO CRISTINE IQBAL CM AT [facility] AND INFORMED HER OF DISCHARGE ORDER TO TRANSFER BACK TO [facility] [place] WITH LONG-TERM CARE. PER CRISTINE TRANSPORT BY [facility] [phone] AND AUTH NUMBER IS [id number]
[2017-05-07 12:00] VITALS: BP 100/76
--- NOTE | 2017-05-07 12:36 | NUR ---
CALLED [facility] AND ARRANGED TRANSPORTATION. FLEET DIRECTOR TIME IS BETWEEN 3:30-4:00.
--- NOTE | 2017-05-07 12:59 | NUR ---
CALLED AND GAVE RE[place] [facility] [place] BE GOING TO ROOM 31A VIA [facility]. PT'S SON JUDI MADE AWARE. PT VERBALIZED UNDERSTANDING.
--- NOTE | 2017-05-07 14:45 | NUR ---
CALLED DR. SALAS AND GAVE RESULTS OF CHEST X-RAY. IMPROVED SINCE LAST EXAM. PT OK TO BE D/C TODAY TO PRIOR FACILITY.
--- NOTE | 2017-05-07 15:45 | NUR ---
PT D/C TO GO TO [facility]. REPORT GIVEN TO TRANSPORTER. PT LEFT UNIT VIA GURNEY ACCOMPANIED BY TRANSPORTERS. IV CATHETER REMOVED FROM RIGHT FA 24G. IV CATHETER TIP INTACT. APPLIED PRESSURE TO SITE. NO BLEEDING NOTED. ID BANDS AND MONITOR REMOVED. PT SIGNED D/C FORMS AND VERBALIZED UNDERSTANDING OF D/C. PT LEFT WITH ALL PERSONAL BELONGINGS AND LEFT IN STABLE CONDITION.
[2017-05-08] MEDS ORDERED: FUROSEMIDE 20 MG/2 ML VIAL IVP SCH (09:00)
[2017-05-08] MEDS ORDERED: FLUCONAZOLE 100 MG TAB PO SCH (09:00)
[2017-05-13] MEDS ORDERED: CRANBERRY450 MG PO (06:20)
[2017-05-13] MEDS ORDERED: VITAMIN C500 M8 PO (06:20)
[2017-05-13] MEDS ORDERED: ACIDOPHILUS1 EAC1 PO (06:20)
== END 2017-05-07 15:45 | DRG 291 ==
LOC: MED 15:03 → MTU 18:27
PROVIDERS: ADMIT Internal Medicine Pulmonary Disease; ATTEND Internal Medicine Pulmonary Disease
DX: I11.0 Hypertensive heart disease with heart failure (principal); J18.9 Pneumonia, unspecified organism; J96.10 Chronic respiratory failure, unspecified whether with hypoxia or hypercapnia; J90 Pleural effusion, not elsewhere classified; F03.90 Unspecified dementia, unspecified severity, without behavioral disturbance, psychotic disturbance, mood disturbance, and anxiety; I48.91 Unspecified atrial fibrillation; Z99.81 Dependence on supplemental oxygen; B37.41 Candidal cystitis and urethritis; I50.23 Acute on chronic systolic (congestive) heart failure; J44.9 Chronic obstructive pulmonary disease, unspecified; K21.9 Gastro-esophageal reflux disease without esophagitis; F41.9 Anxiety disorder, unspecified; M19.90 Unspecified osteoarthritis, unspecified site; E03.9 Hypothyroidism, unspecified; Z88.0 Allergy status to penicillin; Z88.7 Allergy status to serum and vaccine; Z86.73 Personal history of transient ischemic attack (TIA), and cerebral infarction without residual deficits; Z85.3 Personal history of malignant neoplasm of breast; Z90.12 Acquired absence of left breast and nipple; Z79.01 Long term (current) use of anticoagulants; Z87.440 Personal history of urinary (tract) infections

== ENCOUNTER 2017-05-13 06:00 | Inpatient (IN) | payer MEDICARE, MEDICAID ==
[~2017-05-13] VITALS: Ht 165.1 cm; Wt 58.7 kg
[2017-05-13] VITALS (9 sets, daily range): BP systolic 96–123; BP diastolic 45–88
[~2017-05-13 06:00] MED LIST changes: -ACETAMINOPHEN325 M2 PO; -ACIDOPHILU1 Billion; -AMIODARONE HCL200 MG PO; +APIX2.5 PO; -APIXABAN; +ATI.5 PO; -ATIVAN0.5 MG PO; +ATOR40TA PO; +CARV3.12 PO; -COLACE100 M1 PO; -COREG3.125 MG PO; -CRANBERRY450 MG PO; +DOCU-299 PO; -DULCOLAX10 M2 RC; -ELIQUIS2.5 MG PO; -FLEET ENEMA 13135 ML RC; +FLUC100T1 PO; +FURO-570 PO; -GOOD SENSE OMEP20 MG PO; -K-DUR10 MEQ PO; -LASIX40 MG PO; -LIPITOR40 MG PO; +MERO500P2 IV; -MEROPENEM500 MG IV; -MILK OF MA400 MG/5 M PO; +MULT-2308 PO; -MULTIVITAMIN1 SGL PO; -NATURAL IRON65 MG PO; -NORCO 325 MG-51 TAB PO; -NORVASC5 MG PO; +OMEP20TC12 PO; -OMEPRAZOLE20 M3 PO; -ONE DAILY COMP1 EACH PO; -PACERONE200 MG PO; +POTA10TE30 PO; +PRON INH; -PROVENTIL2.5 MG/3 M INH; -ROBITUSSIN/DEXT10 ML PO; -ROBITUSSIN20 MG/1 ML PO; -SALINE NS; +SYN.075 PO; -SYNTHROID0.075 MG PO; -TUMS500 M1 PO; -VITAMIN C500 M8 PO; +[UNRECOGNIZED DRUG - CODE] PO
--- NOTE | 2017-05-13 06:00 | NUR ---
PT HIMANSHU ALS. TAKEN TO BED 7.
--- NOTE | 2017-05-13 06:01 | NUR ---
Dr. Cevallos evaluating patient at bedside.
--- NOTE | 2017-05-13 06:03 | NUR ---
RT AT BEDSIDE
--- NOTE | 2017-05-13 06:05 | NUR ---
PATIENT IS A 86 Y/O FEMALE BIB [facility] WHO PRESENTS TO THE ED C/O SOB. PER [facility] PT STATES THAT SHE WAS C/O OF SOB AND GIVEN TREATMENT OF ALBUTEROL. [facility] REPORTED DESATURATIONS 83% ON 3L O2 NC. PER [facility] REPORTED DECREASING LEVEL OF CONSCIOUSNESS, BUT UNABLE TO ASSESS IN ED AT THIS TIME. RR EVEN AND LABORED, NOTED WHEEZING IN BILATERAL BASES. RT PUT PT ON BIPAP. BED REPOSITIONED FOR COMFORT, BED IN LOWEST POSITION. ER MD DR. MARQUIS NOTIFIED. WILL CONTINUE TO MONITOR. PER [facility], PT STATES SHE HAS H/O ANXIETY.
[2017-05-13] MEDS ORDERED: NACL 0.9% 500 ML IV ONE (06:10)
[2017-05-13] MEDS ORDERED: NACL 0.9% 1,000 ML IV ONE (06:10)
[2017-05-13] MEDS ORDERED: CRAN450C PO (06:20)
[2017-05-13] MEDS ORDERED: LACT1TAB35 PO (06:20)
[2017-05-13] MEDS ORDERED: ASCO500T45 PO (06:20)
--- NOTE | 2017-05-13 06:26 | NUR ---
# 16 FR Harmon catheter with 10 ml utilizing sterile technique. Immediate return of 30 ml CLEAR YELLOW urine noted. Bedside drainage bag placed below level of bladder. Urine sample collected and sent to lab. Pt tolerated procedure WELL.
[2017-05-13 06:34] LABS: BILIRUBIN,URINE NEGATIVE (NEGATIVE); BLOOD, URINE NEGATIVE (NEGATIVE); COLOR,URINE YELLOW (YELLOW); LEUKOCYTE ESTERASE ,URINE NEGATIVE (NEGATIVE); NITRITE, URINE NEGATIVE (NEGATIVE); PH,URINE 5.5 (5.0-9.0); UGLUCOSE NEGATIVE (NEGATIVE)
[2017-05-13 06:38] LABS: HEMATOCRIT 39.9 % (36-48); HEMOGLOBIN 12.6 g/dL (12.0-16.0); MEAN CORPUSCULAR HEMOGLOBIN 31 pg (27-31); MEAN CORPUSCULAR HGB CONC 32 g/dL (33-37); MEAN CORPUSCULAR VOLUME 98 fL (80-94); PLATELET COUNT (AUTO) 309 K/uL (140-450); RED BLOOD CELL COUNT(AUTO) 4.07 MIL/uL (4.20-5.40); RED CELL DISTRIBUTION WIDTH 16.2 % (11.6-13.7); WHITE BLOOD COUNT (AUTO) 26.2 K/uL (4.8-10.8)
--- NOTE | 2017-05-13 06:40 | NUR ---
PT PLACED ON BIPAP PER DR MARQUIS, ABG OBTAINED, RESULTS REPORTED TO DR MARQUIS.
--- NOTE | 2017-05-13 06:43 | NUR ---
X-Ray at bedside.
--- NOTE | 2017-05-13 06:44 | NUR ---
GAG REFLEX PRESENT, PERFORMED BY DR. MARQUIS.
[2017-05-13 06:47] LABS: LYMPHOCYTES % (MANUAL) 5 % (20-46); MONOCYTES % (MANUAL) 3 % (5-12)
[2017-05-13 06:51] LABS: APPEARANCE,URINE HAZY (CLEAR)
[2017-05-13 06:51] LABS: PROTHROMBIN TIME 11.2 secs (10.8-13.4)
[2017-05-13 06:52] LABS: RBC,URINE 0-5 (RARE) /HPF (0-5); WBC,URINE 0-5 (RARE) /HPF (0-5)
--- NOTE | 2017-05-13 06:57 | NUR ---
Dr. Rehman evaluating patient at bedside.
[2017-05-13 07:04] LABS: ANION GAP 8.4 (8-16); CARBON DIOXIDE 32.9 mmol/L (21-32); CHLORIDE 106 mmol/L (98-107); CREATININE 1.3 mg/dL (0.6-1.3); GLUCOSE 153 mg/dL (74-106); POTASSIUM 4.3 mmol/L (3.5-5.1); SODIUM SERUM 143 mmol/L (136-145); UREA NITROGEN, BLOOD 29 mg/dL (7-18)
[2017-05-13 07:09] LABS: ALBUMIN 2.8 g/dL (3.4-5.0); ASPARTATE AMINOTRANSFERASE 69 U/L (15-37); TOTAL BILIRUBIN 0.3 mg/dL (0.0-1.0)
[2017-05-13] MEDS ORDERED: NITROGLYCERIN 2% 1 GM PKT TP ONE (07:10)
[2017-05-13] MEDS ORDERED: LEVOFLOXACIN 500 MG/D5W PREMIX 100 ML IV ONE (07:10)
--- NOTE | 2017-05-13 07:26 | NUR ---
Pt report given to JOSELUIS ARANDA. Transfer of care at this time.
--- NOTE | 2017-05-13 07:30 | NUR ---
PT RESTING ON BED;ALL MONITORS IN PLACED;SAFETY MEASURES DONE;WILL CONTINIUE TO MONITOR PT.
[2017-05-13] MEDS ORDERED: ONDANSETRON 4 MG/2 ML VIAL IVP PRN (07:40)
[2017-05-13] MEDS ORDERED: MORPHINE SULFATE 2 MG/ML SYR IVP PRN (07:40)
[2017-05-13] MEDS ORDERED: LEVOFLOXACIN 500 MG/D5W PREMIX 100 ML IV SCH (07:40)
--- NOTE | 2017-05-13 07:55 | NUR ---
PT WOKE UP;ASKED PT IF SHE'S FEELING BETTER;PT NOD HER HEAD;ALL MONITORS IN PLACED;WILL CONTINUE TO MONITOR PT.
[2017-05-13] MEDS ORDERED: FUROSEMIDE 20 MG/2 ML VIAL IVP ONE (08:00)
[2017-05-13 08:14] LABS: CREATINE KINASE MB 1.4 ng/mL (0-3.6)
--- NOTE | 2017-05-13 08:38 | NUR ---
Patient will be admitted to care of Dr Maciel. Admited to ICU. Will go to BED 1. Belongings list completed. Report to MANOJ GUERRERO.
--- NOTE | 2017-05-13 08:45 | NUR ---
RECEIVED REPORT FROM ALEJANDRINA HUGGINS RN.
--- NOTE | 2017-05-13 08:55 | NUR ---
WAITING ICU TO CALL US BACK;PER CHARGE NURSE;ICU IS WAITING FOR THE RN THAT WILL TAKE CARE OF THE PT;
--- NOTE | 2017-05-13 09:27 | NUR ---
PT REMOVED HER BIPAP;PT VOMITTED;CLEANED AND CHANGE PT;BIPAP WAS PLACED BACK TO PT;ER NOTOFIED;02 SAT OF 98%.
[2017-05-13] MEDS ORDERED: ONDANSETRON 4 MG/2 ML VIAL IVP ONE (09:30)
--- NOTE | 2017-05-13 09:55 | NUR ---
POSITIONED PT TO A COMFORTABLE POSITION;ALL MONITORS IN PLACED;SAFETY MEASURES INSTITUTED;WILL CONTINUE TO MONITOR PT.
--- NOTE | 2017-05-13 10:29 | NUR ---
PT TRANSFERRED FROM ER TO ICU1 WITH JOSELUIS ARANDA
[2017-05-13] MEDS: DEXT 5% /NACL 0.9% 1,000 ML IV SCH (10:30)
--- NOTE | 2017-05-13 10:30 | NUR ---
RECEIVED A PT FROM FRONT OFFICE DIRECTOR VIA [employer]. PT IS ALERT AND ORIENTED X4. DENIES ANY PAIN OR DISCOMFORT. PT IS ON BIPAP AND SETTING AT I/E 8/4, FiO2 45%. SR ON THE MONITOR. SKIN WARM TO TOUCH. OPEN WOUND TO LT BUTTOCK. NONPITTING EDEMA TO BUE NOTED. PERIPHERAL IV LINE ON RT AC # 20G. ABDOMEN SOFT AND NONTENDER. ELY CATHETER DRAINING CLEAR YELLOW URINE. SAFETY PRECAUTION. BED IN LOW POSITION AND CALL LIGHT WITHIN REACH. DR. ZAIDI AWARE OF PT'S ARRIVAL IN ICU.
--- NOTE | 2017-05-13 10:45 | NUR ---
ST AWARE OF PT'S PENDING EVAL AND WILL SEE PT AROUND 4-5PM.
--- NOTE | 2017-05-13 11:50 | NUR ---
JUDI, SON WAS NOTIFIED PT'S ARRIVAL IN ICU DEPT AND UPDATED PT'S CURRENT STATUS. PER SON HE WILL TRY TO MAKE IT TODAY.
[2017-05-13] MEDS: ALBUTEROL 0.083% 2.5 MG/3 ML NEBU IH SCH ×2 (12:59→20:00)
[2017-05-13] MEDS: IPRATROPIUM 0.02% 0.5 MG/2.5 ML NEBU INH SCH ×2 (12:59→20:01)
--- NOTE | 2017-05-13 12:59 | NUR ---
BIPAP CHECK, I\L TX GIVEN WITH ALBUTEROL 2.5MG AND ATROVENT 0.5MG WITH NO ADVERSE REACTION POST TX B\S ARE RALES BILATERALLY CHANGED PT TO 4LNC AND MANOJ Keith NOTIFIED
[2017-05-13] MEDS ORDERED: PIPERACILLIN/TAZOBACTAM 3.375 GM in DEXTROSE 5% 50 ML IV SCH (13:00)
[2017-05-13] MEDS: PIPER/TAZO 3.375GM/D5W PREMIX 50 ML IV SCH ×2 (13:26→20:43)
--- NOTE | 2017-05-13 14:00 | NUR ---
INFORMED WOUND CARE NURSE ABOUT WOUND CONSULT FOR OPEN WOUND TO LT BUTTOCK.
--- NOTE | 2017-05-13 14:06 | NUR ---
PT'S SON AT BEDSIDE.
--- NOTE | 2017-05-13 15:31 | NUR ---
PT STABLE. PROVIDED ORAL CARE. NO S/SX OF RESPIRATORY DISTRESS AND DENIES ANY PAIN NOTED.
--- NOTE | 2017-05-13 16:54 | NUR ---
KRISHNA FORD TO FOLLOW UP WITH ESTUARDO LYNN. INFORMED SPEECH THERAPIST WILL BE IN AROUND [phone].
--- NOTE | 2017-05-13 17:30 | NUR ---
SPEECH THERAPIST PRESENT AT BEDSIDE FOR SWALLOW EVAL.
--- NOTE | 2017-05-13 17:39 | NUR ---
PER SPEECH THERAPIST, PT PASSED SWALLOW EVAL.
--- NOTE | 2017-05-13 17:48 | NUR ---
PAGED DR. RAMIREZ REGARDING SPEECH THERAPIST RECOMMENDATION DIET ORDER. AWAITING CALL BACK.
--- NOTE | 2017-05-13 17:58 | NUR ---
* ST NOTE * Pt seen at bedside after receiving clearance from nsg. Bedside dysphagia and oral mechanism exams completed. See evaluation for further details. Pt tolerating 3/3 alternating PO trials of puree apple sauce 3-4 CCs at a time via a spoon as well as 8/8 alternating PO trials of thin liquid apple juice and orange juice via a straw, all w/out s/s of aspiration. Pt also tolerating 3/3 alternating PO trials of M/S peaches via a spoon as well as 2/2 alternating PO trials of regular solid amie crackers, once again, all w/out s/s of aspiration. Pt reporting no difficulty masticating or swallowing at this time. Pt and caregivers/nsg education completed regarding safe swallow compensatory strategies pt and caregivers/nsg could utilize to aid pt w/swallow function, with pt and caregivers/nsg demonstrating 100% follow through as trained by clinician. Although pt tolerating regular solids w/out s/s of aspiration, it is recommended pt's PO diet consistency be modified to mechanical soft textures w/thin liquids for all meals 2/2 to pt's hx of [aspiration] PNA, with pt and nsg verbalizing understanding and agreement. No further ST follow up recommended at this time. Pt and caregivers/nsg education completed regarding results of evaluation; benefits of abiding by aspiration precautions and recommended PO diet consistency; and prognosis for improvement; with pt and caregivers/nsg verbalizing understanding and agreement w/clinician's recommendations. Recommend: - PO diet consistency of Mechanical soft textures w/thin liquids for all meals - Pt requires assistance w/feeding - Feeder to feed pt slowly, alternating between solids and liquids, and utilizing small bites/sips - Sit pt up at 70-90 degree angle during PO intake 2/2 to dx of aspiration PNA No further ST follow up recommended at this time. G8996 CJ G8997 CI G8998 CI NOMS Level 2 Time In/Out 17:20 - 17:50
--- NOTE | 2017-05-13 18:00 | NUR ---
PT REFUSED DINNER AND SHE ONLY REQUESTED ORANGE JUICE FOR TONIGHT.
--- NOTE | 2017-05-13 18:16 | NUR ---
RECEIVED CALLBACK FROM DR. RAMIREZ. NEW ORDERS RECEIVED.
--- NOTE | 2017-05-13 19:07 | NUR ---
REPORT GIVEN TO MOOKIE MCMAHON RN. PT STABLE.
--- NOTE | 2017-05-13 19:10 | NUR ---
RECEIVED REPORT FROM MANOJ CARRASCO AT BEDSIDE. PT IS A/O X4, ABLE TO FOLLOW COMMANDS AND MAKE NEEDS KNOWN, DENIES PAIN, VSS. NO S/S OF DISTRESS, CRACKLES LUNG SOUNDS, ON O2 AT 4L VIA NC, DENIES CHEST PAIN, SR ON HIGH SCHOOL PROFESSIONAL. SOFT ABDOMEN WITH ACTIVE BOWEL SOUNDS, ELY CATHETER IN PLACE WITH CLEAR YELLOW URINE, SEVERE WEAKNESS TO BLE, SCD'S PLACED TO BLE, SKIN IS WARM TO TOUCH. OPEN WOUND TO LT BUTTOCK (SEE WOUND ASSESSMENT). PERIPHERAL IV LINE TO RT AC # 20G, RUNNING D5NS AT 40 ML/HR. POSITION CHANGED FOR OFF LOAD PRESSURE, SAFETY PRECAUTION IN PLACE, CALL LIGHT WITHIN REACH, WILL CONTINUE TO MONITOR.
[2017-05-13] MEDS: ATORVASTATIN 20 MG TAB PO SCH (20:44)
[2017-05-13] MEDS: FUROSEMIDE 20 MG/2 ML VIAL IVP SCH (20:44)
[2017-05-13] MEDS: APIXABAN 2.5 MG TAB PO SCH (20:45)
[2017-05-13] MEDS: CARVEDILOL 6.25 MG TAB PO SCH (20:46)
[2017-05-13] MEDS: DOCUSATE SODIUM 100 MG GELCAP PO SCH (20:46)
[2017-05-13] MEDS: ASCORBIC ACID 500 MG TAB PO SCH (20:46)
[2017-05-13] MEDS ORDERED: NON-FORMULARY ITEM (Lactobacillus Acidophilus (Acidophilus) 1 EACH) PO SCH (21:00)
--- NOTE | 2017-05-13 21:00 | NUR ---
SCHEDULED MEDICATION GIVEN, PT ABLE TO SWALLOW PILLS IN WHOLE, NO ADVERSE EFFECTS NOTED.
--- NOTE | 2017-05-13 22:00 | NUR ---
NO CHANGE OF CONDITION AT THIS TIME, VSS, POSITION CHANGED FOR OFF LOAD PRESSURE.
[2017-05-14] VITALS (21 sets, daily range): BP systolic 91–123; BP diastolic 45–71
--- NOTE | 2017-05-14 | NUR ---
PT IS ASLEEP IN BED, NO S/S OF DISTRESS, VSS, REFUSED CHANGE POSITION, RISK AND BENEFIT EXPLAINED.
[2017-05-14] MEDS: IPRATROPIUM 0.02% 0.5 MG/2.5 ML NEBU INH SCH ×4 (00:12→19:02)
[2017-05-14] MEDS: ALBUTEROL 0.083% 2.5 MG/3 ML NEBU IH SCH ×4 (00:12→19:02)
--- NOTE | 2017-05-14 02:00 | NUR ---
NO CHANGE OF CONDITION AT THIS TIME, VSS, POSITION CHANGED FOR OFF LOAD PRESSURE.
--- NOTE | 2017-05-14 02:35 | NUR ---
PT IS RESTLESSNESS, O2 SAT WENT DOWN TO 84%, RT AT BEDSIDE, WILL CONTINUE TO MONITOR.
[2017-05-14] MEDS ORDERED: ALBUTEROL 0.083% 2.5 MG/3 ML NEBU INH ONE (02:41)
--- NOTE | 2017-05-14 02:45 | NUR ---
BREATHING TREATMENT GIVEN BY RT AND PLACED PT ON BIPAP WITH SETTING I/E 10/5, FIO2 40. O2 SAT WENT BACK TO 99% AT THIS TIME.
--- NOTE | 2017-05-14 04:00 | NUR ---
AM CARE PROVIDED, ORAL CARE PROVIDED, NO CHANGE OF CONDITION AT THIS TIME, STILL ON BIPAP, O2 SAT 97%.
[2017-05-14] MEDS: PIPER/TAZO 3.375GM/D5W PREMIX 50 ML IV SCH ×3 (04:20→20:54)
--- NOTE | 2017-05-14 05:45 | NUR ---
PT REQUESTED TO REMOVE BIPAP, RT AT BEDSIDE, O2 SAT AT 99%, REMOVED BIPAP, AND PUT BACK ON O2 AT 6L VIA NC.
--- NOTE | 2017-05-14 05:50 | NUR ---
PT O2 SAT DROPPED TO 78%, EXPLAINED TO PT, AND AGREED TO PUT BIPAP BACK ON, O2 SAT BACK TO 94%
[2017-05-14 06:05] LABS: BASOPHILS % (AUTO) 0.3 % (0.0-2.0); EOSINOPHILS # (AUTO) 0.1 K/uL (0-0.4); EOSINOPHILS % (AUTO) 0.6 % (0.0-4.0); HEMATOCRIT 30.9 % (36-48); HEMOGLOBIN 9.7 g/dL (12.0-16.0); LYMPHOCYTES # (AUTO) 0.7 K/uL (2.5-16.5); LYMPHOCYTES % (AUTO) 5.4 % (20.5-51.1); MEAN CORPUSCULAR HEMOGLOBIN 31 pg (27-31); MEAN CORPUSCULAR HGB CONC 32 g/dL (33-37); MEAN CORPUSCULAR VOLUME 97 fL (80-94); MONOCYTES # (AUTO) 0.7 K/uL (0.8-1.0); MONOCYTES % (AUTO) 5.1 % (1.7-9.3); NEUTROPHILS # (AUTO) 11.7 K/uL (1.8-7.7); NEUTROPHILS % (AUTO) 88.6 % (42.2-75.2); PLATELET COUNT (AUTO) 208 K/uL (140-450); RED BLOOD CELL COUNT(AUTO) 3.19 MIL/uL (4.20-5.40); RED CELL DISTRIBUTION WIDTH 15.9 % (11.6-13.7); WHITE BLOOD COUNT (AUTO) 13.2 K/uL (4.8-10.8)
[2017-05-14 06:35] LABS: ALBUMIN 2.3 g/dL (3.4-5.0); ANION GAP 10.2 (8-16); ASPARTATE AMINOTRANSFERASE 56 U/L (15-37); CARBON DIOXIDE 34.8 mmol/L (21-32); CHLORIDE 105 mmol/L (98-107); CREATININE 1.3 mg/dL (0.6-1.3); GLUCOSE 136 mg/dL (74-106); MAGNESIUM 1.9 mg/dL (1.8-2.4); SODIUM SERUM 146 mmol/L (136-145); TOTAL BILIRUBIN 0.5 mg/dL (0.0-1.0); UREA NITROGEN, BLOOD 27 mg/dL (7-18)
[2017-05-14] MEDS: LEVOTHYROXINE 0.075 MG TAB PO SCH (06:46)
[2017-05-14 06:48] LABS: CREATINE KINASE MB 0.8 ng/mL (0-3.6)
--- NOTE | 2017-05-14 07:17 | NUR ---
RECEIVED PT STABLE ON BIPAP SUPPORT AT DOCUMENTED SETTINGS, HHN TX GIVEN IN LINE WITH BIPAP, TOLERATED WELL, NO RESP DISTRESS OR SOB NOTED, POST TX PT STATED RELIEF AND REQUESTED TO BE TAKEN OFF BIPAP, PT PLACED ON 4 LPM NC, TOLERATING WELL, O2 SAT 98%, WILL CONTINUE TO MONITOR.
--- NOTE | 2017-05-14 07:20 | NUR ---
RECEIVED REPORT FROM MANOJ DAMICO, FOR CONTINUITY OF CARE. PT IS AWAKE, AAO X 4. ABLE TO FOLLOW COMMANDS AND ABLE TO MAKE NEEDS KNOWN. NORMAL SINUS RHYTHM ON MONITOR. BILATERAL RHONCHI AUSCULTATED. PT IS CURRENTLY ON O2 4 LPM/NC, O2 SAT 98%. INTERMITTANT, NON-PRODUCTIVE COUGH NOTED. BOWEL SOUNDS ACTIVE X 4 QUADRANTS. PERIPHERAL IV 20 G TO THE LEFT FOREARM PATENT AND INTACT, FLOWING ORDERED IV FLUID. ELY CATHETER IN PLACE, DRAINING URINE TO GRAVITY DRAINAGE BAG. DRESSING TO SACRAL COCCYX AREA CLEAN, DRY AND INTACT. SCD IN PLACE. NEEDS WELL ATTENDED. NO SOB OR ACUTE DISTRESS NOTED AT THIS TIME. BED IN LOWEST POSITION. CALL LIGHT WITHIN REACH. WILL CONTINUE TO MONITOR.
--- NOTE | 2017-05-14 08:23 | NUR ---
OXYGEN SATURATION 87% AT THIS TIME. PT IS CURRENTLY ON O2 6 LPM/ NC. RT PAGED.
--- NOTE | 2017-05-14 08:29 | NUR ---
CALLED TO BEDSIDE, PT DESATURATING, PLACED BACK ON TO BIPAP, TOLERATING WELL, 02 SAT 96%, WILL CONTINUE TO MONITOR
[2017-05-14] MEDS: FUROSEMIDE 20 MG/2 ML VIAL IVP SCH (08:52)
[2017-05-14] MEDS: FAMOTIDINE 20 MG/2 ML VIAL IVP SCH (08:53)
[2017-05-14] MEDS: LACTOBACILLUS RHAMNOSUS GG 1 EACH CAP PO SCH (08:53)
[2017-05-14] MEDS: DOCUSATE SODIUM 100 MG GELCAP PO SCH ×2 (08:53→20:40)
[2017-05-14] MEDS: CARVEDILOL 6.25 MG TAB PO SCH ×3 (08:53→20:37)
[2017-05-14] MEDS: AMIODARONE 200 MG TAB PO SCH (08:54)
[2017-05-14] MEDS: ASPIRIN 81 MG TAB.CHEW PO SCH (08:55)
[2017-05-14] MEDS: MULTIVITAMIN/MINERALS 1 TAB PO SCH (08:55)
[2017-05-14] MEDS: ASCORBIC ACID 500 MG TAB PO SCH ×2 (08:55→20:37)
[2017-05-14] MEDS: APIXABAN 2.5 MG TAB PO SCH ×2 (08:56→20:40)
[2017-05-14] MEDS ORDERED: ENOXAPARIN 30 MG/0.3 ML SYR SUBQ SCH (09:00)
[2017-05-14] MEDS ORDERED: MULTIVITAMIN WITH MINERALS PO SCH (09:00)
--- NOTE | 2017-05-14 09:08 | NUR ---
ADMINISTERED MORNING MEDICATIONS. PT HAD NO PROBLEM SWALLOWING PILLS. NO SOB OR ACUTE DISTRESS NOTED. O2 SAT 94%. RT AT BEDSIDE. WILL CONTINUE TO MONITOR.
--- NOTE | 2017-05-14 09:18 | NUR ---
PATIENT HAS BEEN SCREENED AND CATEGORIZED HIGH NUTRITION RISK. PATIENT WILL BE SEEN WITHIN 1-2 DAYS OF ADMISSION. 05/13/17-05/14/[address]
[2017-05-14] MEDS: DEXT 5% /NACL 0.9% 1,000 ML IV SCH ×2 (09:30→14:16)
--- NOTE | 2017-05-14 10:10 | NUR ---
AT BED SIDE AND PREPARE FOR SKIN ASSESSMENT, PRIMARY NURSE IS REPOSITION PT. AND REPORT THAT PT HAS EPISODE OF DESATURATION EARLIER, DOCTOR ALSO ARRIVING THIS TIME TO EVALUATE PT. WILL RETURN LATER WHEN PT'S CONDITION STABLE.
--- NOTE | 2017-05-14 10:17 | NUR ---
DR. ZAIDI CAME IN TO SEE AND EXAMINE PT. WILL FOLLOW UP WITH NEW ORDERS. PT CURRENTLY ON O2 3 LPM/ NC, O2 SAT 98%. WILL CONTINUE TO MONITOR.
--- NOTE | 2017-05-14 10:19 | NUR ---
05/14/17 RD INITIAL ASSESSMENT COMPLETED PLEASE REFER TO NUTRITION ASSESSMENT UNDER CARE ACTIVITY FOR ESTIMATED NUTRITIONAL NEEDS. 1. CONTINUE CARDIAC, MECHANICAL SOFT DIET (OR TEXTURE PER ST RECOMMENDATIONS) 2. ADD HEALTH SHAKE BID 3. CONTINUE VITAMIN C + MVI/MINERALS 4. RD TO FOLLOW-UP 2-3 DAYS, HIGH RISK OLESYA UREÑA, RD
--- NOTE | 2017-05-14 10:45 | NUR ---
WOUND CARE EVALUATION NOTES: REASON FOR EVALUATION: LOWER JACOBO SCORE AND SACROCOCCYX WOUND PRIMARY RN CALLED AND INFORM TO ASSESS PT. RT AT BEDSIDE DURING ASSESSMENT. COMPLETE SKIN ASSESSMENT DONE ON THIS 86 Y/O FEMALE PATIENT FROM [facility] TO [facility], WITH INITIAL DIAGNOSIS ALOC, SOB. PAST MEDICAL HISTORY INCLUDE COPD,ANXIETY DISORDER, HYPERTENSION AND GERD. ALL ABOVE INFORMATION WAS OBTAINED FROM PT. AND ADMISSION H&P. LABS ARE WBC 13.2, H/H 9.7/30.9, GLUCOSE 136, ALBUMIN 2.3. CURRENT MEDS INCLUDE FUROSEMIDE, AMIODARONE HCL, FAMOTIDINE AND ATORVASTATIN. PATIENT IS AWAKE, ALERT, AND ABLE TO FOLLOW COMMANDS. SKIN WARM TO TOUCH WNL, NO EDEMA, NO HAIR GROWTH AND BILATERAL PEDAL PULSES PRESENT. RIGHT FOREARM PERIPHERAL IV PATENT AND INTACT. F/C #16 PATENT AND INTACT TO CLEAR YELLOW COLORED URINE IN MODERATE AMOUNT. PLAN OF CARE AND PRESSURE PREVENTIVE MEASURES DISCUSSED WITH PT AND PRIMARY NURSE. PT UNABLE TO VERBALIZE UNDERSTANDING. INTEGUMENTARY: UPPER EXTREMITIES MULTIPLE ECCHYMOSIS RIGHT LOWER CHIN AND LEFT LATERAL ANKLE AREAS DRY ABRASIONS NO S/S OF INFECTION SACROCOCCYX STAGE II PRESSURE ULCER 0.5X0.5CM WITH PW REDNESS MEASURE 5X5CM INDICATED FURTHER SKIN BREAKS RECOMMENDATIONS: -RIGHT LOWER CHIN AND LEFT LATERAL ANKLE AREAS DRY ABRASIONS KEEP DRY AND CLEAN, CORPORATE TRAVEL COUNSELOR. MONITOR AND REPORT IF ANY CHANGE OF CONDITION -CLEANSE SACROCOCCYX WITH NS AND GAUZE, PAT DRY, APPLY HYDRAGEL TO WOUND BED AND APPLY Z GUARD TO PW, COVER WITH ADAPTIC AND DRY DRESSING SECURE WITH TAPE Q DAY AND PRN IF SOILING -TURN AND REPOSITION PATIENT Q2H TO LEFT AND RIGHT SIDE ONLY TO OFFLOAD SACROCOCCYX -ASSESS AND MONITOR SKIN CONDITION DURING POSITION CHANGE, PLEASE PAY ATTENTION TO SACROCOCCYX AND HEELS -OFFLOAD BILATERAL HEELS BY PLACING PILLOWS UNDER CALVES AT ALL TIMES, UNLESS OTHERWISE CONTRAINDICATED -PRESSURE REDISTRIBUTION SURFACE THERAPY -KEEP SKIN CLEAN AND DRY AT ALL TIMES. -CONTINUE TO F/U RD RECOMMENDATIONS. RECOMMENDATIONS DISCUSSED WITH PRIMARY RN WILL FOLLOW UP PATIENT Q 7 -10 DAYS AND PRN. PLEASE CONTACT WOUND CARE NURSE FOR ANY CONCERNS AND CHANGES IN WOUND CONDITION
--- NOTE | 2017-05-14 11:50 | NUR ---
PAGED DR. ZAIDI DUE TO O2 DESATURATION OF 76%. PT ON BIPAP. AWAITING CALL BACK.
--- NOTE | 2017-05-14 11:55 | NUR ---
DR. ZAIDI CALLED BACK. PER DR. ZAIDI, OKAY TO BE ON AND OFF BIPAP. NO ABG NEEDED. DR. ZAIDI ORDERED CPT TID. WILL CONTINUE TO MONITOR.
[2017-05-14] MEDS ORDERED: Z-GUARD PASTE TP PRN (12:10)
[2017-05-14] MEDS ORDERED: SKINTEGRITY HYDROGEL TP PRN (12:10)
--- NOTE | 2017-05-14 13:20 | NUR ---
NOTIFIED BY RN FOR USE OF BIPAP FOR DESATURATION AND CPT TID.
--- NOTE | 2017-05-14 13:46 | NUR ---
CHECKED ON PT. PT RESTING COMFORTABLY AT THIS TIME. PT IS ON BIPAP, O2 SAT 94%. BREATHING USING ACCESSORY MUSCLES NOTED. BED IN LOWEST POSITION AND CALL LIGHT WITHIN REACH. WILL CONTINUE TO MONITOR.
--- NOTE | 2017-05-14 14:02 | NUR ---
CM NOTE INITIAL REVIEW FAXED TO [facility] / FAX# [phone], ATTN: CRISTINE #[phone]
[2017-05-14] MEDS: ACETAMINOPHEN 325 MG TAB PO PRN ×2 (14:12→20:38)
[2017-05-14] MEDS: Z-GUARD PASTE TP SCH (14:51)
--- NOTE | 2017-05-14 15:17 | NUR ---
SPOKE WITH SON, JUDI, AND GAVE UPDATE ABOUT PT.
--- NOTE | 2017-05-14 16:02 | NUR ---
PT STILL ON BIPAP AND O2 SATURATION 75%, RR 36. ACCESSORY MUSCLE USAGE NOTED FOR BREATHING. FAMILY AT BEDSIDE. WILL UPDATE PT'S CONDITION TO DR. ZAIDI.
--- NOTE | 2017-05-14 16:24 | NUR ---
RECEIVED A CALL FROM [employer], REGARDING BLOOD CULTURE RESULT. PAGED DR. ZAIDI. AWAITING CALL BACK.
--- NOTE | 2017-05-14 16:38 | NUR ---
DR. ZAIDI CALLED BACK. MADE AWARE OF BLOOD CULTURE RESULT. WITH ORDERS FOR VANCOMYCIN AND CHEST X-RAY IN AM. ORDERS TRANSCRIBED AND CARRIED OUT. UPDATED MD OF PT'S CONDITION. WILL CONTINUE ON BIPAP FOR NOW. WILL CONTINUE TO MONITOR PT.
[2017-05-14] MEDS ORDERED: VANCOMYCIN PER PHARMACY MC PRN (16:50)
--- NOTE | 2017-05-14 17:50 | NUR ---
TITRATED BIPAP FIO2 TO 55%, O2 SAT 91%, HAVE BEEN ATTEMPTING TO TITRATE FIO2 THROUGHOUT THE DAY BUT O2 SATURATION WOULD FLUCTUATE FROM 70-80%, O2 SAT NOW BETWEEN 88-92%, FARRUKH ARANDA AWARE, WILL ENDORSE TO DIAL BUFFER.
[2017-05-14] MEDS ORDERED: VANCOMYCIN HCL 750 MG in DEXTROSE 5% 250 ML IV SCH (18:00)
--- NOTE | 2017-05-14 18:28 | NUR ---
CHECKED ON PT. PT IS AWAKE, AAO X 4. STILL ON BIPAP, O2 SAT 87% AT THIS TIME. USES ACCESSORY MUSCLES FOR BREATHING. REPOSITIONED PT. PT TOLERATED WELL. NEEDS WELL ATTENDED. BED IN LOWEST POSITION. CALL LIGHT WITHIN REACH. WILL CONTINUE TO MONITOR.
--- NOTE | 2017-05-14 19:20 | NUR ---
RECEIVE PATIENT FROM ASHU CEE RN AM SHIFT. PATIENT AWAKE ,ALERT VERBAL RESPONSE. PATIENT BREATHING WITH ACCESSORY MUSCLE WITH O2 BETWEEN 87-89 %,PATIENT BREATHING 30-35X/MINT. RT AT BED SITE. USING BIPAP I/E 07/15. IV D 5 NS AT 40 CC/HR TO RIGHT FORE ARM NO 20 GAUGE. NO S/S OF INFILTRATION ON THE SITE.NO C/O PAIN AT THIS TIME. ENCOURAGE PATIENT TO CALM AND MORE RELAX.ENCOURAGE TO TAKE DEEP BREATHING.SWOLLEN TO LEFT ARM ELEVATED AREA WITH PILLOW, DISCOLORATION TO BUE. ABD SOFT NON DISTENDED. SCD TO BLE. .
--- NOTE | 2017-05-14 19:25 | NUR ---
RECEIVED PT ON BIPAP, RESTLESS, ,ON 10/5, PT RR VERY HIGH OVER 30. INCREASED THE SETTINGS FROM 10/5 TO 12/5, IMPROVED VT OVER 400,
--- NOTE | 2017-05-14 20:06 | NUR ---
PATIENT LOOK CALM AND SLEEPING AT THIS TIME, NO RESP DISTRESS,NO SOB. CONTINUE ON BIPAP I/E 07/15 TOLERATED WELL,O2 SAT 100 % WITH RESP RATE 26 X/MINUTES. HOB UP 30-45 DEGREE.
[2017-05-14] MEDS: ATORVASTATIN 20 MG TAB PO SCH (20:38)
--- NOTE | 2017-05-14 20:45 | NUR ---
NIGHT MEDICATION GIVEN. NOTED REDNESS UNDER BIPAP AREA ,RT AND CHARGE NURSE AWARE, NO C/O PAIN ON THE AREA.KEPT AREA CLEAN AND DRY.
--- NOTE | 2017-05-14 21:26 | NUR ---
FIO2 TO 55%AND PT RESTLESS AND SHE COMPLAINED THAT CAN NOT SLEEP, WAS CALLED AND ORDER ATIVAN
--- NOTE | 2017-05-14 22:00 | NUR ---
REPOSITION PATIENT FOR COMFORT.CALL LIGHT IN REACH.
[2017-05-14] MEDS ORDERED: LORazepam 2 MG/ML VIAL IVP PRN (23:20)
--- NOTE | 2017-05-14 23:20 | NUR ---
PATIENT WITH EPISODE OF RESTLESSNESS WITH RR 32-38X/MINUTES. MADE AWARE WITH NEW ORDER ATIVAN 1 MG IVP EVERY 6 HOURS PRN. ORDER NOTED AND CARRIED OUT.PATIENT MADE AWARE.
[2017-05-15] VITALS (16 sets, daily range): BP systolic 86–109; BP diastolic 42–65
--- NOTE | 2017-05-15 00:27 | NUR ---
LORAZEPAM 1 MG IVP SLOWLY GIVEN D/T EPISODE OF RESTLESSNESS HR 84,RR 36X/MINUTES. MONITOR PATIENT CLOSELY.
--- NOTE | 2017-05-15 00:29 | NUR ---
PATIENT SLEPT WELL,NO S/S OF RESTLESSNESS,NO SOB,NO RESP DISTRESS,NO S/S OF PAIN OR DISCOMFORT. CALL LIGHT IN REACH.
[2017-05-15] MEDS: IPRATROPIUM 0.02% 0.5 MG/2.5 ML NEBU INH SCH ×4 (01:24→20:50)
[2017-05-15] MEDS: ALBUTEROL 0.083% 2.5 MG/3 ML NEBU IH SCH ×4 (01:24→20:50)
[2017-05-15] MEDS: Z-GUARD PASTE TP SCH ×2 (01:39→12:10)
--- NOTE | 2017-05-15 02:00 | NUR ---
PATIENT SLEPT WELL,NO S/S OF RESP.DISTRESS,NO SOB. CONT ON BIPAP WITH I/E 07/15 AND FIO2 45 % RATE 14 SERAFIN WELL. Addendum: 05/15/17 at 0428 by Maricruz Randolph RN FIO2 55
[2017-05-15] MEDS: PIPER/TAZO 3.375GM/D5W PREMIX 50 ML IV SCH ×3 (04:30→21:20)
--- NOTE | 2017-05-15 05:00 | NUR ---
BIPAP I/E 07/15 ,FIO2 45,RR14 TOLERATED WELL.NO RESP DISTRESS,NO SOB,DENIES ANY PAIN. AM CARE GIVEN,SPONGE BATH,MOUTH CARE AND F/C GIVEN.KEPT CLEAN AND DRY.CALL LIGHT IN REACH.
[2017-05-15 05:14] LABS: ANION GAP 14.4 (8-16); CARBON DIOXIDE 29.6 mmol/L (21-32); CHLORIDE 104 mmol/L (98-107); CREATININE 1.8 mg/dL (0.6-1.3); GLUCOSE 185 mg/dL (74-106); SODIUM SERUM 143 mmol/L (136-145); UREA NITROGEN, BLOOD 33 mg/dL (7-18)
[2017-05-15] MEDS: LEVOTHYROXINE 0.075 MG TAB PO SCH (05:30)
[2017-05-15 07:11] LABS: HEMATOCRIT 30.5 % (36-48); HEMOGLOBIN 9.8 g/dL (12.0-16.0); MEAN CORPUSCULAR HEMOGLOBIN 31 pg (27-31); MEAN CORPUSCULAR HGB CONC 32 g/dL (33-37); MEAN CORPUSCULAR VOLUME 97 fL (80-94); PLATELET COUNT (AUTO) 149 K/uL (140-450); RED BLOOD CELL COUNT(AUTO) 3.13 MIL/uL (4.20-5.40); RED CELL DISTRIBUTION WIDTH 16.4 % (11.6-13.7); WHITE BLOOD COUNT (AUTO) 14.2 K/uL (4.8-10.8)
--- NOTE | 2017-05-15 07:16 | NUR ---
RECEIVED REPORT FROM TOM SMITH RN, FOR CONTINUITY OF CARE. PT IS SLEEPING COMFORTABLY AT THIS TIME. ON BIPAP, FIO2 45%, O2 SAT 95%. BREATHING UNLABORED, CHEST RISE EVEN. NO SOB NOTED AT THIS TIME. SR ON MONITOR. PERIPHERAL IV 20G TO RIGHT FOREARM INTACT AND PATENT, FLOWING ORDERED IV FLUID. ELY CATHETER IN PLACE DRAINING URINE TO GRAVITY DRAINAGE BAG. NO SIGNS OF ACUTE DISTRESS NOTED AT THIS TIME. BED IN LOWEST POSITION AND CALL LIGHT WITHIN REACH. WILL CONTINUE TO MONITOR.
--- NOTE | 2017-05-15 07:31 | NUR ---
recived pt on bipap with settings as charted pt resting at this time breath sounds present bilat with some expiratory rales vent plugged into red outlet ambu bag at bedside will continue to monitor pt on bipap
[2017-05-15 07:43] LABS: LYMPHOCYTES % (MANUAL) 5 % (20-46); MONOCYTES % (MANUAL) 3 % (5-12)
[2017-05-15] MEDS: MULTIVITAMIN/MINERALS 1 TAB PO SCH (08:13)
[2017-05-15] MEDS: ASPIRIN 81 MG TAB.CHEW PO SCH (08:13)
[2017-05-15] MEDS: ASCORBIC ACID 500 MG TAB PO SCH ×2 (08:13→21:19)
[2017-05-15] MEDS: DOCUSATE SODIUM 100 MG GELCAP PO SCH ×3 (08:13→21:19)
[2017-05-15] MEDS: LACTOBACILLUS RHAMNOSUS GG 1 EACH CAP PO SCH (08:13)
[2017-05-15] MEDS: CARVEDILOL 6.25 MG TAB PO SCH ×2 (08:14→21:19)
[2017-05-15] MEDS: AMIODARONE 200 MG TAB PO SCH (08:14)
[2017-05-15] MEDS: APIXABAN 2.5 MG TAB PO SCH ×2 (08:15→21:22)
[2017-05-15] MEDS: FAMOTIDINE 20 MG/2 ML VIAL IVP SCH (08:16)
[2017-05-15] MEDS: FUROSEMIDE 20 MG/2 ML VIAL IVP SCH ×2 (08:17→08:49)
--- NOTE | 2017-05-15 08:25 | NUR ---
removed pt from bipap and placed on 2 lpm nc per rn request so pt could take meds and eat breakfast spo2 .95 awake lethargic will continue to monitor pt rn laura at bedside
[2017-05-15] MEDS ORDERED: SKINTEGRITY HYDROGEL TP SCH ×2 (09:00→13:00)
--- NOTE | 2017-05-15 09:05 | NUR ---
ADMINISTERED MORNING MEDICATIONS. PT CAN SWALLOW PILLS WELL WITH APPLE SAUCE. HELD COREG AND LASIX FOR LOW BP. PT REFUSED TO TAKE COLACE. RESTING COMFORTABLY AT THIS TIME. 02 SAT 97% ON O2 3 LPM/ NC. NO SOB OR ACUTE DISTRESS AT THIS TIME. NEEDS WELL ATTENDED. CALL LIGHT WITHIN REACH. WILL CONTINUE TO MONITOR.
--- NOTE | 2017-05-15 10:58 | NUR ---
DR. ZAIDI CAME IN TO SEE AND EXAMINE PT. MADE AWARE THAT COREG AND LASIX WERE HELD DUE TO PT'S LOW BP. WILL FOLLOW UP WITH NEW ORDERS.
--- NOTE | 2017-05-15 11:10 | NUR ---
SXN PT WITH ORAL AIRWAY FOR MIN AMT OFF LIO FERNANDEZ RN AT BEDSIDE
[2017-05-15] MEDS ORDERED: methylPREDNISolone SS 40 MG/ML VIAL IVP SCH (11:30)
--- NOTE | 2017-05-15 14:00 | NUR ---
TURNED AND REPOSITIONED PT. MADE COMFORTABE IN BED. BED IN LOWEST POSITION. CALL LIGHT WITHIN REACH.
--- NOTE | 2017-05-15 14:05 | NUR ---
PT'S SON, JUDI, AT BEDSIDE. UPDATED PT'S CONDITION. CONCERNS AND QUESTIONS ADDRESSED.
--- NOTE | 2017-05-15 14:31 | NUR ---
CM NOTE CONCURRENT REVIEW FAXED TO [facility] / FAX# [phone], ATTN: CRISTINE #[phone]
--- NOTE | 2017-05-15 15:54 | NUR ---
PT COMPLAINED OF NAUSEA. ADMINISTERED PRN ZOFRAN. PT IS STABLE. ON O2 2 LPM/NC, O2 SAT 94%. NO VOMITING AT THIS TIME. WILL REASSESS AND CONTINUE TO MONITOR.
[2017-05-15] MEDS: DEXT 5% /NACL 0.9% 1,000 ML IV SCH (17:15)
--- NOTE | 2017-05-15 18:20 | NUR ---
VANCOMYCIN TROUGH 8.5. PER PHARMACY, CONTINUE THE SAME VANCOMYCIN DOSE.
[2017-05-15] MEDS: VANCOMYCIN 500 MG in DEXTROSE 5% 100 ML IV SCH (18:27)
[2017-05-15] MEDS: ACETYLCYSTEINE 10% (100 MG/ML) 100 MG/ML VIAL INH SCH (19:00)
--- NOTE | 2017-05-15 19:16 | NUR ---
REPORT GIVEN TO SHEET [employer] SUPERVISOR NURSES FOR CONTINUITY OF CARE. PT IS AWAKE, ALERT AND STABLE. NO SIGNS OF ACUTE DISTRESS NOTED AT THIS TIME. BED IN LOWEST POSITION AND CALL LIGHT WITHIN REACH.
--- NOTE | 2017-05-15 19:20 | NUR ---
RECEIVED PATIENT FROM ASHU RN, PATIENT ALERT,OREINTED X4,DENIES ANY PAIN, ON O2 AT 2LPM VIA N/C TOLERATED WELL. HOB UP 30-45 DEGREE. NO C/O OF CHEST PAIN, NO S/S OF RESP DISTRESS,NO SOB. IV LINE ON LFA WITH 20 GUAGE INTACT WELL.CONT ON IV D5 IN NS AT 40 CC/HR RUNNING ORDER.SKIN WARM TO TOUCH. ABD SOFT NON DISTENDED.F/C INTACT WITH YELLOW CLEAR URINE DRAINAGE BY GRAVITY.
--- NOTE | 2017-05-15 20:55 | NUR ---
RT MEDICATION GIVEN LATE BECAUSE RT WAS IN A CODE ON THE FLOOR AND THEN HELPED TRANSFER ANOTHER SAME PT TO ICU FOR EMERGENCY CARE AND TX. PATIENT WAS GIVEN MEDICATION LATE BECAUSE PATIENT IS WHEEZING. PATIENT IS STABLE AT THIS TIME NO RESP DISTRESS
[2017-05-15] MEDS: ATORVASTATIN 20 MG TAB PO SCH (21:19)
--- NOTE | 2017-05-15 21:25 | NUR ---
PT COMPLAINT OF DIFFICULTY OF BREATHING. O2 SAT 85-89%. ATTACHED TO BIPAP BY RT. BIPAP SETTING PER MD ORDER.
--- NOTE | 2017-05-15 21:30 | NUR ---
NIGHT MEDICATION GIVEN ORDERED PO SERAFIN WELL.
[2017-05-16] VITALS (14 sets, daily range): BP systolic 92–114; BP diastolic 49–73
--- NOTE | 2017-05-16 | NUR ---
CALM,DENIES PAIN,REPOSITION FOR COMFORT,CONT ON BIPAP ORDERED.NO S/S RESP.DISTRESS,NO SOB.KEPT CLEAN AND DRY.
[2017-05-16] MEDS: ALBUTEROL 0.083% 2.5 MG/3 ML NEBU IH SCH ×4 (01:00→18:33)
[2017-05-16] MEDS: IPRATROPIUM 0.02% 0.5 MG/2.5 ML NEBU INH SCH ×4 (01:00→18:33)
[2017-05-16] MEDS: Z-GUARD PASTE TP SCH ×2 (01:52→16:08)
--- NOTE | 2017-05-16 02:00 | NUR ---
SLEEP WELL,NO S/S OF RESP.DISTRESS,NO SOB. HOB UP 30-45 DEGREE SERAFIN WELL.NO S/S OF PAIN OR DISCOMFORT NOTED.
[2017-05-16] MEDS: ALBUTEROL SULFATE/IPRATROPIU 3 ML SOL IH PRN ×2 (02:33→10:55)
--- NOTE | 2017-05-16 04:00 | NUR ---
AWAKE,ALERT VERBALLY RESPONSIVE,PUT BACK TO O2 VIA N/C AT 4 LPM SERAFIN WELL WITH SPO2 99%. PT ON SEMI BOYD POSITION. MNURGE.
--- NOTE | 2017-05-16 05:00 | NUR ---
PT AWAKE ALERT ORIENTED X4,CONT ON O2 AT 4LPM VIA N/C SERAFIN WELL. NO RESP DISTRESS,NO SOB. AM CARE GIVEN. SPONGE BATH , MOUTH CARE AND F/C CARE GIVEN.KEPT CLEAN AND DRY.CALL LIGHT IN REACH.
[2017-05-16] MEDS: PIPER/TAZO 3.375GM/D5W PREMIX 50 ML IV SCH (05:02)
[2017-05-16 06:09] LABS: BASOPHILS % (AUTO) 0.5 % (0.0-2.0); EOSINOPHILS % (AUTO) 0.1 % (0.0-4.0); HEMATOCRIT 28.7 % (36-48); HEMOGLOBIN 9.2 g/dL (12.0-16.0); LYMPHOCYTES # (AUTO) 0.4 K/uL (2.5-16.5); LYMPHOCYTES % (AUTO) 5.5 % (20.5-51.1); MEAN CORPUSCULAR HEMOGLOBIN 31 pg (27-31); MEAN CORPUSCULAR HGB CONC 32 g/dL (33-37); MEAN CORPUSCULAR VOLUME 97 fL (80-94); MONOCYTES # (AUTO) 0.3 K/uL (0.8-1.0); MONOCYTES % (AUTO) 4.1 % (1.7-9.3); NEUTROPHILS # (AUTO) 6.6 K/uL (1.8-7.7); NEUTROPHILS % (AUTO) 89.8 % (42.2-75.2); PLATELET COUNT (AUTO) 141 K/uL (140-450); RED BLOOD CELL COUNT(AUTO) 2.97 MIL/uL (4.20-5.40); RED CELL DISTRIBUTION WIDTH 16.2 % (11.6-13.7)
[2017-05-16] MEDS: LEVOTHYROXINE 0.075 MG TAB PO SCH (06:23)
--- NOTE | 2017-05-16 06:30 | NUR ---
AM MEDS GIVEN SERAFIN WELL
[2017-05-16 06:49] LABS: ANION GAP 12.3 (8-16); CARBON DIOXIDE 31.5 mmol/L (21-32); CHLORIDE 104 mmol/L (98-107); GLUCOSE 147 mg/dL (74-106); POTASSIUM 4.8 mmol/L (3.5-5.1); SODIUM SERUM 143 mmol/L (136-145); UREA NITROGEN, BLOOD 39 mg/dL (7-18)
--- NOTE | 2017-05-16 07:36 | NUR ---
REPOER GIVEN TO BRODIE ARANDA,PT ON STABLE CONDITION, ALERT,AWAKE ORIENTED. V/S BP 106/61,P 79, R 14,SPO2 97%.
[2017-05-16 07:44] LABS: WHITE BLOOD COUNT (AUTO) 7.3 K/uL (4.8-10.8)
[2017-05-16] MEDS: ACETYLCYSTEINE 10% (100 MG/ML) 100 MG/ML VIAL INH SCH ×2 (07:51→18:33)
[2017-05-16] MEDS: FUROSEMIDE 20 MG/2 ML VIAL IVP SCH (09:00)
--- NOTE | 2017-05-16 09:00 | NUR ---
BUN and Creatine continued elevation over last 3 days. CXR showed improved pleural effusions, no edema. Adin CAMARA, okay to hold lasix.
[2017-05-16] MEDS: FAMOTIDINE 20 MG/2 ML VIAL IVP SCH (09:09)
[2017-05-16] MEDS: ASPIRIN 81 MG TAB.CHEW PO SCH (09:10)
[2017-05-16] MEDS: methylPREDNISolone SS 40 MG/ML VIAL IVP SCH (09:10)
[2017-05-16] MEDS: AMIODARONE 200 MG TAB PO SCH (09:11)
[2017-05-16] MEDS: DOCUSATE SODIUM 100 MG GELCAP PO SCH ×2 (09:11→20:25)
[2017-05-16] MEDS: CARVEDILOL 6.25 MG TAB PO SCH ×2 (09:11→20:18)
[2017-05-16] MEDS: LACTOBACILLUS RHAMNOSUS GG 1 EACH CAP PO SCH (09:12)
[2017-05-16] MEDS: MULTIVITAMIN/MINERALS 1 TAB PO SCH (09:12)
[2017-05-16] MEDS: ASCORBIC ACID 500 MG TAB PO SCH ×2 (09:12→20:17)
[2017-05-16] MEDS ORDERED: PROBIOTIC SCREEN 1 EA MISC MC PRN (09:35)
[2017-05-16] MEDS: APIXABAN 2.5 MG TAB PO SCH ×2 (09:58→20:27)
--- NOTE | 2017-05-16 11:14 | NUR ---
05/16/17 RD FOLLOW-UP ASSESSMENT COMPLETED PLEASE REFER TO NUTRITION ASSESSMENT UNDER CARE ACTIVITY FOR ESTIMATED NUTRITIONAL NEEDS. 1. CONTINUE CARDIAC, MECHANICAL SOFT DIET 2. CONTINUE VITAMIN C + MVI/MINERALS 3. ENCOURAGE INCREASED PO INTAKE TO TOLERANCE 4. RD TO FOLLOW-UP 2-3 DAYS, HIGH RISK OLSEYA UREÑA, PERLA
--- NOTE | 2017-05-16 11:30 | NUR ---
According to laboratory, sputum needs to be re-collected. Cough is non-productive and pt refuses to be suctioned. Discussion with MD, wbc count normal today, no fevers, continue zosyn and supportive therapy, okay to discontinue re-collection of sputum sample
--- NOTE | 2017-05-16 13:03 | NUR ---
FAXED CONCURRENT REVIEW TO [facility] [phone] PHONE CRISTINE [phone]
[2017-05-16] MEDS: PIPER/TAZO 2.25GM/D5W PREMIX 50 ML IV SCH ×2 (13:23→20:19)
--- NOTE | 2017-05-16 14:01 | NUR ---
pt with resp distress requested bipap placed pt on bipap with settings as charted pt semms to be rama well will cont to monitor decreased fi02 to .35 rn aware
--- NOTE | 2017-05-16 15:50 | NUR ---
Attempted to assist patient to turn and relieve pressure off sacrum/coccyx. Despite multiple attempts at different positions which would relieve pressure, and reinforcement of education, pt persistently scooted back onto her sacral area.
--- NOTE | 2017-05-16 15:51 | NUR ---
PER CRISTINE FROM [facility]. I PATIENT GOES BACK [place] [facility] [place], THE AUTH FOR [facility] [place] [id number]. THE AUTH FOR [facility], PHONE [phone], IS [id number].
--- NOTE | 2017-05-16 16:20 | NUR ---
pt renoved from bipap and placed on 3lpm nc rn aware
[2017-05-16] MEDS: VANCOMYCIN 500 MG in DEXTROSE 5% 100 ML IV SCH (18:05)
--- NOTE | 2017-05-16 19:24 | NUR ---
received report from raghu zimmer
--- NOTE | 2017-05-16 19:39 | NUR ---
PATIENT IN BED, NO SIGNS OF DISTRESS. AOX4 WITH EPISODES OF FORGETFULNESS. PATIENT HAS HX OF CVA SO LEFT SIDED WEAKNESS. PATIENT IS VERBAL AND CAN COMMUNICATE HER NEEDS AND FOLLOWS COMMANDS. PATIENT PASSED SWALLOW EVAL. PATIENT HAS RHONCHI BILATERALLY ON AUSCULTATION. PATIENT ON 3L OF OXYGEN AND O2 SAT 100. ACTIVE BOWEL SOUNDS. PATIENT VOIDS USING A BED BENITEZ. HEALING STAGE TWO ULCER ON HER COCCYX. GENERALIZED WEAKNESS. GAUGE 2O ON RIGHT ARM SALINE LOCK. PATIENT NORMAL SINUS RHYTHM ON THE MONITOR.
[2017-05-16] MEDS: ATORVASTATIN 20 MG TAB PO SCH (20:17)
[2017-05-16] MEDS: SODIUM CHLORIDE FLUSH 10 ML SYR IVF SCH (20:29)
[2017-05-16] MEDS ORDERED: SODIUM CHLORIDE FLUSH 10 ML SYR IVF SCH (21:00)
--- NOTE | 2017-05-16 22:00 | NUR ---
PATIENTS OXYGEN SATURATION REDUCED TO 89, PATIENT WAS ASSESSED AND RT WAS CALLED. PATIENT WAS PLACED ON A 30% AEROSOL MASK.
--- NOTE | 2017-05-16 22:09 | NUR ---
PLACED PT ON 30% COOL AEROSOL FOR DESAT PT IS AWAKE AND ALERT
[2017-05-16] MEDS: LORazepam 2 MG/ML VIAL IVP PRN (23:31)
--- NOTE | 2017-05-16 23:45 | NUR ---
PATIENT TOLERATING 30% COOL AEROSOL MASK WELL. O2 SATURATION SUSTAINED IN THE HIGH 90'S. O2 SAT CURRENTLY 100
[2017-05-17] VITALS (19 sets, daily range): BP systolic 91–108; BP diastolic 43–70
[2017-05-17] MEDS: IPRATROPIUM 0.02% 0.5 MG/2.5 ML NEBU INH SCH ×4 (00:18→19:07)
[2017-05-17] MEDS: ALBUTEROL 0.083% 2.5 MG/3 ML NEBU IH SCH ×4 (00:18→19:07)
[2017-05-17] MEDS: Z-GUARD PASTE TP SCH ×2 (01:24→13:09)
--- NOTE | 2017-05-17 01:45 | NUR ---
PATIENT IN BED SLEEPING, NO SIGNS OF DISTRESS. WILL CONTINUE TO MONITOR. CALL LIGHT WITHIN REACH.
--- NOTE | 2017-05-17 03:15 | NUR ---
PATIENT IN BED, NO SIGN OF DISTRESS. PATIENT VOIDED 100MLS
--- NOTE | 2017-05-17 04:58 | NUR ---
PATIENT IN BED, NO SIGN OF DISTRESS, FREQUENT VISUAL CHECKS, ALL ALARMS ARE CHECKED, PATIENT TOLERATING COOL AEROSOL MASK AT 30%.
[2017-05-17 05:32] LABS: BASOPHILS # (AUTO) 0.1 K/uL (0.00-0.22); BASOPHILS % (AUTO) 0.8 % (0.0-2.0); EOSINOPHILS % (AUTO) 0.1 % (0.0-4.0); HEMATOCRIT 30.7 % (36-48); HEMOGLOBIN 9.5 g/dL (12.0-16.0); LYMPHOCYTES # (AUTO) 0.6 K/uL (2.5-16.5); LYMPHOCYTES % (AUTO) 6.2 % (20.5-51.1); MEAN CORPUSCULAR HEMOGLOBIN 30 pg (27-31); MEAN CORPUSCULAR HGB CONC 31 g/dL (33-37); MEAN CORPUSCULAR VOLUME 97 fL (80-94); MONOCYTES # (AUTO) 0.5 K/uL (0.8-1.0); MONOCYTES % (AUTO) 5.7 % (1.7-9.3); NEUTROPHILS # (AUTO) 7.7 K/uL (1.8-7.7); NEUTROPHILS % (AUTO) 87.2 % (42.2-75.2); PLATELET COUNT (AUTO) 145 K/uL (140-450); RED BLOOD CELL COUNT(AUTO) 3.17 MIL/uL (4.20-5.40)
[2017-05-17 05:41] LABS: ANION GAP 7.2 (8-16); CARBON DIOXIDE 34.9 mmol/L (21-32); CHLORIDE 105 mmol/L (98-107); CREATININE 2.1 mg/dL (0.6-1.3); GLUCOSE 121 mg/dL (74-106); POTASSIUM 5.1 mmol/L (3.5-5.1); SODIUM SERUM 142 mmol/L (136-145); UREA NITROGEN, BLOOD 42 mg/dL (7-18)
[2017-05-17] MEDS: LEVOTHYROXINE 0.075 MG TAB PO SCH (05:54)
[2017-05-17] MEDS: SODIUM CHLORIDE FLUSH 10 ML SYR IVF SCH ×3 (05:55→20:20)
[2017-05-17] MEDS: PIPER/TAZO 2.25GM/D5W PREMIX 50 ML IV SCH ×3 (05:55→20:20)
[2017-05-17 06:17] LABS: WHITE BLOOD COUNT (AUTO) 8.9 K/uL (4.8-10.8)
--- NOTE | 2017-05-17 06:25 | NUR ---
PATIENT DOES NOT LIKE THE COOL AEROSOL MASK, CALLED RT 2 TIMES TO REMOVE MASK AND REPLACE WITH NC.
[2017-05-17] MEDS: ACETYLCYSTEINE 10% (100 MG/ML) 100 MG/ML VIAL INH SCH ×2 (06:32→19:07)
--- NOTE | 2017-05-17 07:16 | NUR ---
PATIENT FEELING LIKE SHE CAN'T BREATH POST BREATHING TREATMENT, RT WAS CALLED TO PLACE PATIENT ON BIPAP. RT CAME AND PLACED PATIENT ON BIPAP.
--- NOTE | 2017-05-17 07:20 | NUR ---
RECEIVED A REPORT FROM MANOJ HERNANDES. PT IS ALERT AND ABLE TO MAKE NEEDS KNOWN. NO S/SX OF RESPIRATORY DISTRESS AND DENIES ANY PAIN AT THIS TIME. CHANGED TO BIPAP BY RT AND SETTING AT I/E /, FiO2 35%. SR ON THE MONITOR. SKIN WARM TO TOUCH. ABDOMEN SOFT AND NONTENDER. ON SCD. ABLE TO MOVE ALL EXTREMITIES WITH GENERALIZED WEAKNESS. SAFETY PRECAUTION. BED IN LOW POSITION. CALL LIGHT WITHIN REACH. WILL CONTINUE TO MONITOR.
--- NOTE | 2017-05-17 07:24 | NUR ---
PT PLACED ON BIPAP /, R14, 35%. PT STATED SHE WAS SOB, PT IS TOLERATING WELL AND WOB HAS DECREASED ON BIPAP. ALARMS ARE ON AND FUNCTIONING. NURSE IS AWARE. WILL CONTINUE TO MONITOR.
[2017-05-17] MEDS: LACTOBACILLUS RHAMNOSUS GG 1 EACH CAP PO SCH (08:48)
[2017-05-17] MEDS: methylPREDNISolone SS 40 MG/ML VIAL IVP SCH ×2 (08:48→20:20)
[2017-05-17] MEDS: FAMOTIDINE 20 MG/2 ML VIAL IVP SCH (08:48)
[2017-05-17] MEDS: AMIODARONE 200 MG TAB PO SCH (08:49)
[2017-05-17] MEDS: APIXABAN 2.5 MG TAB PO SCH ×2 (08:49→20:22)
[2017-05-17] MEDS: ASPIRIN 81 MG TAB.CHEW PO SCH (08:49)
[2017-05-17] MEDS: DOCUSATE SODIUM 100 MG GELCAP PO SCH ×2 (08:49→20:21)
[2017-05-17] MEDS: MULTIVITAMIN/MINERALS 1 TAB PO SCH (08:49)
[2017-05-17] MEDS: CARVEDILOL 6.25 MG TAB PO SCH ×2 (08:50→20:21)
[2017-05-17] MEDS: ASCORBIC ACID 500 MG TAB PO SCH ×2 (08:50→20:21)
--- NOTE | 2017-05-17 09:00 | NUR ---
DR. FOFANA IN TO SEE PT. WILL FOLLOW UP ON ORDERS
--- NOTE | 2017-05-17 09:13 | NUR ---
PT TOLERATED MEDICATIONS WELL. PAGED ST FOR RE-EVAL AND AWAITING FOR CALL BACK Addendum: 05/17/17 at 0931 by Robin Allison RN HOLD COREG DUE TO BP 99/64
[2017-05-17] MEDS: LORazepam 2 MG/ML VIAL IVP PRN ×2 (09:23→20:35)
--- NOTE | 2017-05-17 09:23 | NUR ---
PT C/O ANXIOUS AND ATIVAN GIVEN PRN ORDERED. WILL CONTINUE TO MONITOR.
--- NOTE | 2017-05-17 09:50 | NUR ---
PT STABLE AND NO S/SX OF RESPIRATORY DISTRESS NOTED.
--- NOTE | 2017-05-17 10:38 | NUR ---
PAGED ST AGAIN AND STILL AWAITING FOR CALL BACK
--- NOTE | 2017-05-17 10:45 | NUR ---
SON IS AT BEDSIDE AND UPDATED OF PT'S CURRENT CONDITION.
--- NOTE | 2017-05-17 11:19 | NUR ---
PT DOES NOT WANT TO WEAR BIPAP AT THIS TIME, REMOVING MASK. PLACED ON 4L NC. PT NOT SOB NOT IN RESPIRATORY DISTRESS AT THIS TIME WILL CONTINUE TO MONITOR.
--- NOTE | 2017-05-17 11:58 | NUR ---
PAGED SPEECH THERAPIST FOR RE-EVALUATION AND STILL WAITING FOR CALLBACK
--- NOTE | 2017-05-17 11:59 | NUR ---
PAGED DR. FOFANA REGARDING PT REFUSING TO EAT AND DRINK.
--- NOTE | 2017-05-17 12:01 | NUR ---
RECEIVED CALL BACK FROM DR. FOFANA AND REPORT ABOUT NO APPETITE AND NO PO INTAKE DUE TO PT REFUSED. PER DR. FOFANA, KEEP ENCOURAGING PO INTAKE AND NO IV HYDRATION AT THIS TIME DUE TO CHF. NO S/SX OF DEHYDRATION NOTED. WILL CONTINUE TO MONITOR.
[2017-05-17] MEDS ORDERED: SKINTEGRITY HYDROGEL TP PRN (13:00)
[2017-05-17] MEDS ORDERED: SKINTEGRITY HYDROGEL TP SCH (13:00)
--- NOTE | 2017-05-17 14:19 | NUR ---
PT IS BRADYCARDIC, HR 45-48 AT THIS TIME. PT IS ASYMPTOMATIC. PAGED DR. FOFANA. AWAITING CALLBACK.
--- NOTE | 2017-05-17 14:23 | NUR ---
RECEIVED CALLBACK FROM DR. FOFANA. NEW ORDERS RECEIVED.
[2017-05-17] MEDS ORDERED: DEXT 5% / NACL 0.45% 1,000 ML IV SCH (15:40)
--- NOTE | 2017-05-17 15:50 | NUR ---
DR. FOFANA IN TO SEE PT. WILL FOLLOW UP ON ORDERS
--- NOTE | 2017-05-17 17:00 | NUR ---
DR. FOFANA AWARE OF PT HAS NO VOIDS SINCE IN THE MORNING WITH NO PO INTAKE.
--- NOTE | 2017-05-17 17:00 | NUR ---
PT NOTES 1700 PT order received, patient cont to be on BiPAP all day per nursing, not medically stable for PT eval at this time, and will follow up with PT eval when patient able to tolerate it more. Nursing aware.
--- NOTE | 2017-05-17 17:25 | NUR ---
PT REMAINS ON BIPAP AT THIS TIME NO CHANGES MADE TO BIPAP SETTINGS. PT REMAINS TACHYPNEIC AND ANXIOUS. BIPAP ALARMS REMAIN ON AND FUNCTIONING.
--- NOTE | 2017-05-17 17:45 | NUR ---
PT STABLE. WILL CONTINUE TO MONITOR
[2017-05-17] MEDS ORDERED: VANCOMYCIN 500 MG in DEXTROSE 5% 100 ML IV SCH (18:00)
--- NOTE | 2017-05-17 19:05 | NUR ---
PT ON BIPAP, HHN TX ON LINE OF BIPAP, NO DISTRESS AT THIS TIME
--- NOTE | 2017-05-17 19:38 | NUR ---
REPORT GIVEN AND ENDORSE CARE TO MOOKIE MCMAHON RN. PT STABLE
--- NOTE | 2017-05-17 19:39 | NUR ---
RECEIVED REPORT FROM MANOJ CARRASCO AT BEDSIDE. PT IS A/O X4, ABLE TO FOLLOW COMMANDS AND MAKE NEEDS KNOWN, DENIES PAIN, VSS. NO S/S OF DISTRESS, CRACKLES LUNG SOUNDS, ON BIPAP WITH SETTING I/E 12/5, RATE 14, FIO2 35%, DENIES CHEST PAIN, SR ON WIDE AREA NETWORK ENGINEER. SOFT ABDOMEN WITH ACTIVE BOWEL SOUNDS, INCONTINENT WITH B&B'S, LEFT SIDE WEAKNESS NOTED, SCD'S PLACED TO BLE, SKIN IS WARM TO TOUCH. OPEN WOUND TO LT BUTTOCK (SEE WOUND ASSESSMENT). PERIPHERAL IV LINE TO RT FOREARM# 20G, RUNNING D5NS AT 60 ML/HR. POSITION CHANGED FOR OFF LOAD PRESSURE, SAFETY PRECAUTION IN PLACE, CALL LIGHT WITHIN REACH, WILL CONTINUE TO MONITOR.
--- NOTE | 2017-05-17 20:10 | NUR ---
DR JONES ABG, BUT DUE TO BP LOW WE ARE UNABLE TO OBTAINED ABG, WE GOT VENOUS BLOOD, WE WILL GET LATE ON WHEN BP IMPROVED Addendum: 05/17/17 at 2013 by Sharmaine Maldonado RT WRONG PATIENT
[2017-05-17] MEDS: ATORVASTATIN 20 MG TAB PO SCH (20:21)
--- NOTE | 2017-05-17 20:50 | NUR ---
SCHEDULED MEDICATION GIVEN BY MOUTH, PT IS ABLE TO SALLOW PILLS WHOLE WITH APPLE SAUCE, NO ADVERSE EFFECTS NOTED.
--- NOTE | 2017-05-17 21:19 | NUR ---
BLOOD CULTURE ORDERED AT 1600, HAVE NOT BEEN COLLECTED YET, CALLED LAB, REFUSED TO COLLECT DUE TO PT ON VANCOMYCIN, NEED TO CLARIFY WITH , PAGESandra CHANG, WAITING FOR CALL BACK. Addendum: 05/17/17 at 2144 by Susan Clark RN WRONG PATIENT
[2017-05-18] VITALS (14 sets, daily range): BP systolic 60–105; BP diastolic 20–67
--- NOTE | 2017-05-18 | NUR ---
NO CHANGE OF CONDITION AT THIS TIME, ON BIPAP, O2 SAT 99%. POSITION CHANGED FOR OFF LOAD PRESSURE.
[2017-05-18] MEDS: IPRATROPIUM 0.02% 0.5 MG/2.5 ML NEBU INH SCH ×2 (01:14→06:56)
[2017-05-18] MEDS: ALBUTEROL 0.083% 2.5 MG/3 ML NEBU IH SCH ×2 (01:14→06:56)
[2017-05-18] MEDS: Z-GUARD PASTE TP SCH (01:25)
--- NOTE | 2017-05-18 02:00 | NUR ---
NO CHANGE OF CONDITION AT THIS TIME, VSS. POSITION CHANGED FOR OFF LOAD PRESSURE.
[2017-05-18] MEDS: LORazepam 2 MG/ML VIAL IVP PRN (02:36)
--- NOTE | 2017-05-18 03:35 | NUR ---
PT WAS SLEEPING ALL NIGHT WITH ON BIPAP LOOKING COMFORTABLE,SHE DESAT. COUPLE OF TIME AND I INCREASED FIO2 TO 50%
--- NOTE | 2017-05-18 04:00 | NUR ---
VSS, NO S/S OF DISTRESS, AM CARE PROVIDED, ORAL CARE PROVIDED, POSITION CHANGED FOR OFF LOAD PRESSURE.
[2017-05-18] MEDS: PIPER/TAZO 2.25GM/D5W PREMIX 50 ML IV SCH (04:22)
[2017-05-18] MEDS: SODIUM CHLORIDE FLUSH 10 ML SYR IVF SCH (04:22)
[2017-05-18] MEDS: LEVOTHYROXINE 0.075 MG TAB PO SCH (05:39)
--- NOTE | 2017-05-18 06:00 | NUR ---
NO CHANGE OF CONDITION AT THIS TIME, VSS, POSITION CHANGED FOR OFF LOAD PRESSURE.
[2017-05-18] MEDS: ACETYLCYSTEINE 10% (100 MG/ML) 100 MG/ML VIAL INH SCH (06:57)
--- NOTE | 2017-05-18 07:05 | NUR ---
RECEIVED PT ON BIPAP, SETTINGS 12/5, R14 AND FIO2 TITRATED TO 40%. PT IS SLEEPING BUT DOES OPEN EYES. PROTECTA-GEL IS PLACED UNDER MASK. BIPAP IS PLUGGED INTO RED OUTLET WITH ALARMS ON AND FUNCTIONING. WILL CONTINUE TO MONITOR.
--- NOTE | 2017-05-18 07:15 | NUR ---
REPORT GIVEN TO AM RN AT BEDSIDE FOR CONTINUE OF CARE, PT IS IN STABLE CONDITION AT THIS TIME, VSS.
[2017-05-18 08:07] LABS: BASOPHILS # (AUTO) 0.1 K/uL (0.00-0.22); BASOPHILS % (AUTO) 1.2 % (0.0-2.0); EOSINOPHILS % (AUTO) 0.6 % (0.0-4.0); HEMOGLOBIN 9.5 g/dL (12.0-16.0); LYMPHOCYTES # (AUTO) 0.5 K/uL (2.5-16.5); LYMPHOCYTES % (AUTO) 6.8 % (20.5-51.1); MEAN CORPUSCULAR HEMOGLOBIN 31 pg (27-31); MEAN CORPUSCULAR HGB CONC 32 g/dL (33-37); MEAN CORPUSCULAR VOLUME 97 fL (80-94); MONOCYTES # (AUTO) 0.4 K/uL (0.8-1.0); MONOCYTES % (AUTO) 5.6 % (1.7-9.3); NEUTROPHILS # (AUTO) 6.2 K/uL (1.8-7.7); NEUTROPHILS % (AUTO) 85.8 % (42.2-75.2); PLATELET COUNT (AUTO) 115 K/uL (140-450); RED CELL DISTRIBUTION WIDTH 15.9 % (11.6-13.7); WHITE BLOOD COUNT (AUTO) 7.2 K/uL (4.8-10.8)
[2017-05-18 08:08] LABS: CARBON DIOXIDE 31.6 mmol/L (21-32); CHLORIDE 103 mmol/L (98-107); CREATININE 2.5 mg/dL (0.6-1.3); GLUCOSE 187 mg/dL (74-106); POTASSIUM 5.6 mmol/L (3.5-5.1); SODIUM SERUM 141 mmol/L (136-145); UREA NITROGEN, BLOOD 58 mg/dL (7-18)
[2017-05-18 08:25] LABS: MAGNESIUM 2.7 mg/dL (1.8-2.4); PHOSPHORUS 7.5 mg/dL (2.5-4.9)
[2017-05-18] MEDS: AMIODARONE 200 MG TAB PO SCH (09:00)
[2017-05-18] MEDS: ASCORBIC ACID 500 MG TAB PO SCH (09:00)
[2017-05-18] MEDS: APIXABAN 2.5 MG TAB PO SCH (09:00)
[2017-05-18] MEDS: LACTOBACILLUS RHAMNOSUS GG 1 EACH CAP PO SCH (09:00)
[2017-05-18] MEDS: MULTIVITAMIN/MINERALS 1 TAB PO SCH (09:00)
[2017-05-18] MEDS: DOCUSATE SODIUM 100 MG GELCAP PO SCH (09:00)
[2017-05-18] MEDS: FAMOTIDINE 20 MG/2 ML VIAL IVP SCH (09:00)
[2017-05-18] MEDS: CARVEDILOL 6.25 MG TAB PO SCH (09:00)
[2017-05-18] MEDS: ASPIRIN 81 MG TAB.CHEW PO SCH (09:00)
--- NOTE | 2017-05-18 09:30 | NUR ---
Upon removal of Bipap and placement of nasal cannula, pt quickly desaturated into 70s. RT at bedside. Placed back on Bipap. Unable to give po meds at this time. Respirations labored, level of consciousness waxing and waning. Lung sound assessment completed. trace pitting edema in right foot, no other edema. urine output decreased last shift, pt could not urinate, unable to palpate bladder with certainty. CXR results reviewed. Labs reviewed. paged. Son notified.
[2017-05-18] MEDS: methylPREDNISolone SS 40 MG/ML VIAL IVP SCH (09:37)
--- NOTE | 2017-05-18 10:30 | NUR ---
Dr. Alonso returned page. orders received.
[2017-05-18] MEDS ORDERED: INSULIN HUMAN REGULAR 100 UNITS/ML 10 ML VIAL IVP SCH (11:00)
[2017-05-18] MEDS ORDERED: DEXTROSE 50% 50 ML SYR IVP SCH (11:00)
[2017-05-18] MEDS ORDERED: SODIUM BICARBONATE 8.4% PFS 50 MEQ/50 ML SYR IVP SCH (11:00)
--- NOTE | 2017-05-18 11:19 | NUR ---
Dr Kay, nephrology office contacted. Dr Ahn is money examiner today and he did return call to confirm consult
--- NOTE | 2017-05-18 12:03 | NUR ---
PT BECAME UNRESPONSIVE, NO PULSE, CPR INITIATED, SEE CODE BLUE RECORD.
--- NOTE | 2017-05-18 12:03 | NUR ---
CARDIOPULMONARY ARREST Galindo MCADAMS RCP AND Sagar CHAIDEZ RCP ATTENDING AT THIS TIME FOR CHEST COMPRESSION, AIRWAY MANAGEMENT AND INTUBATION ASSIST
--- NOTE | 2017-05-18 12:26 | NUR ---
TIME OF CALLED BY DR DEAN AT 1226, REFER TO CODE BLUE SHEET.
--- NOTE | 2017-05-18 13:06 | NUR ---
[facility] NOTIFIED. PT IS NOT A CANDIDATE FOR ORGAN OR TISSUE DONATION. SPOKE TO [facility]. REFERRAL NUMBER [id number].
--- NOTE | 2017-05-18 13:10 | NUR ---
CALLED [place] [employer]W MACHINE OPERATOR [facility]S OFFICE, AWAITING CALLBACK.
--- NOTE | 2017-05-18 14:57 | NUR ---
RECEIVED CALLBACK FROM [facility] LIME FILTER OPERATOR, CHRISTO BANKS. INFORMED BODY CAN BE RELEASED. CASE #: [id number]
== END 2017-05-18 12:26 | disposition expired | DRG 871 ==
LOC: MED 06:00 → MIC 09:26
PROVIDERS: ADMIT Internal Medicine Pulmonary Disease; ATTEND Internal Medicine Pulmonary Disease
PROC: 5A09457 Assistance with Respiratory Ventilation, 24-96 Consecutive Hours, Continuous Positive Airway Pressure (ICD-10-PCS; principal; 2017-05-13)
PROC: 5A12012 Performance of Cardiac Output, Single, Manual (ICD-10-PCS; 2017-05-18)
DX: A41.9 Sepsis, unspecified organism (principal); J69.0 Pneumonitis due to inhalation of food and vomit; J96.21 Acute and chronic respiratory failure with hypoxia; G93.41 Metabolic encephalopathy; I50.43 Acute on chronic combined systolic (congestive) and diastolic (congestive) heart failure; L89.159 Pressure ulcer of sacral region, unspecified stage; J96.22 Acute and chronic respiratory failure with hypercapnia; J44.1 Chronic obstructive pulmonary disease with (acute) exacerbation; I46.9 Cardiac arrest, cause unspecified; F03.90 Unspecified dementia, unspecified severity, without behavioral disturbance, psychotic disturbance, mood disturbance, and anxiety; I11.0 Hypertensive heart disease with heart failure; E03.9 Hypothyroidism, unspecified; Z74.01 Bed confinement status; R53.81 Other malaise; E11.9 Type 2 diabetes mellitus without complications; I44.7 Left bundle-branch block, unspecified; I25.10 Atherosclerotic heart disease of native coronary artery without angina pectoris; S61.411A Laceration without foreign body of right hand, initial encounter; X58.XXXA Exposure to other specified factors, initial encounter; K21.9 Gastro-esophageal reflux disease without esophagitis; M19.90 Unspecified osteoarthritis, unspecified site; I48.2 Chronic atrial fibrillation; F41.9 Anxiety disorder, unspecified; Z85.3 Personal history of malignant neoplasm of breast; Z88.0 Allergy status to penicillin; Z88.7 Allergy status to serum and vaccine; Z90.10 Acquired absence of unspecified breast and nipple; Z86.73 Personal history of transient ischemic attack (TIA), and cerebral infarction without residual deficits; Y93.89 Activity, other specified; Y92.89 Other specified places as the place of occurrence of the external cause; Y99.8 Other external cause status; Z79.01 Long term (current) use of anticoagulants; Z79.899 Other long term (current) drug therapy
CPT/HCPCS: 31500; 36415; 36600; 51702; 71010; 80048; 80053; 80202; 81001; 82550; 82553; 82803; 82948; 83605; 83735; 83880; 84100; 84484; 85025; 85610; 85730; 87040; 87070; 87081; 87086; 87205; 89220; 92610; 92950; 93005; 94640; 94660; 96361; 96375; 99285; A6248; J1940; J1956; J2060; J2405; J2543; J2920; J3370; J3490; J7030; J7042; J7060; J7613; J7620; J7644; Q0092